=== PATIENT | female | born 1960 | race Caucasian/White ===

== ENCOUNTER → 2019-08-15 15:43 | Outpatient (BNVA) | payer MEDICARE, MEDICAID, SELFPAY | PROVIDERS: Family Provider Family Medicine; PCP Family Medicine; Visit Provider Specialist | DX: G43.711 Chronic migraine without aura, intractable, with status migrainosus (principal); F17.210 Nicotine dependence, cigarettes, uncomplicated | CPT/HCPCS: 99214 ==

== ENCOUNTER → 2019-09-15 08:21 | Outpatient (BNVA) | payer MEDICARE, MEDICAID, SELFPAY | PROVIDERS: Family Provider Family Medicine; PCP Family Medicine; Visit Provider Nurse Practitioner Psychiatric/Mental Health | DX: F33.2 Major depressive disorder, recurrent severe without psychotic features (principal); F43.12 Post-traumatic stress disorder, chronic; F41.1 Generalized anxiety disorder; F10.21 Alcohol dependence, in remission; F12.20 Cannabis dependence, uncomplicated; F15.21 Other stimulant dependence, in remission; F17.210 Nicotine dependence, cigarettes, uncomplicated | CPT/HCPCS: 99214 ==

== ENCOUNTER 2019-11-03 11:03 | Outpatient (CLI) | payer MEDICARE, MEDICAID, SELFPAY ==
--- NOTE | 2019-11-03 11:00 | MR_ITS ---
WS: [id number] MRI BRAIN WITHOUT CONTRAST HISTORY: previous abnormal MRI COMPARISON: 03/23/2018 and 10/27/2017 TECHNIQUE: Diffusion imaging, multiplanar T1, T2 and FLAIR imaging obtained. No evidence for acute infarct or hemorrhage. Robles-white matter differentiation is normal. There are extensive T2 and FLAIR signal abnormalities throughout the brain in a pericallosal and a sommers bcortical white matter distribution. White matter lesions perpendicular to the corpus callosum are st able. Size and number of the lesions appears stable. There is no obvious progression of the disease. There is extensive chronic ischemic change or demyelination bilaterally in the joss which is also sta ble. Ventricles and extra-axial spaces are normal. No inferior displacement of cerebellar tonsils. The sella turcica and pituitary gland are unremarkabl e. Visualized upper cervical region is normal. Dural venous sinuses and [place] of [place] demonstrate no abnormality on this unenhanced studies. Paranasal sinuses: Clear. Mastoid air cells: Normal. Calvarium and scalp: Intact. MR/MR head wo con* [id number] IMPRESSION: 1. Moderate to severe signal abnormalities within the brain. Due to the distri bution some of these signal changes are probably due to demyelination while oth ers are due to chronic microvascular ischemic disease. 2. No overall progression of disease since 03/23/2018. 3. Moderate bilateral joss ischemic changes are stable also. 4. No hemorrhage or acute infarct.
[2019-11-03 13:55] LABS: Erythrocyte Sedimentation Rate 15 mm/hr (0-15)
[2019-11-03 14:32] LABS: C Reactive Protein 2.5 mg/L (0.0-4.9)
== END 2019-11-03 11:04 | disposition home or self-care (01) ==
LOC: RADSHAW 11:10
PROVIDERS: Visit Provider Specialist
DX: R93.0 Abnormal findings on diagnostic imaging of skull and head, not elsewhere classified (principal)
CPT/HCPCS: 70551; 85651; 86140

== ENCOUNTER → 2019-12-25 07:28 | Outpatient (BNVA) | payer MEDICARE, MEDICAID, SELFPAY | PROVIDERS: Visit Provider Nurse Practitioner Psychiatric/Mental Health | DX: F33.2 Major depressive disorder, recurrent severe without psychotic features (principal); F43.12 Post-traumatic stress disorder, chronic; F41.1 Generalized anxiety disorder; F10.21 Alcohol dependence, in remission; F12.20 Cannabis dependence, uncomplicated; F15.21 Other stimulant dependence, in remission; F17.210 Nicotine dependence, cigarettes, uncomplicated | CPT/HCPCS: 99213 ==

== ENCOUNTER → 2020-06-18 08:09 | Outpatient (BNVA) | payer MEDICARE, MEDICAID, SELFPAY | PROVIDERS: Visit Provider Nurse Practitioner Psychiatric/Mental Health | DX: F33.2 Major depressive disorder, recurrent severe without psychotic features (principal); F43.12 Post-traumatic stress disorder, chronic; F41.1 Generalized anxiety disorder; F10.21 Alcohol dependence, in remission; F12.20 Cannabis dependence, uncomplicated; F15.21 Other stimulant dependence, in remission; F17.210 Nicotine dependence, cigarettes, uncomplicated; Z91.89 Other specified personal risk factors, not elsewhere classified | CPT/HCPCS: 99214 ==

== ENCOUNTER → 2020-09-19 08:03 | Outpatient (BNVA) | payer MEDICARE, MEDICAID, SELFPAY | PROVIDERS: PCP Family Medicine Adult Medicine; Visit Provider Nurse Practitioner Psychiatric/Mental Health | DX: F33.2 Major depressive disorder, recurrent severe without psychotic features (principal); F43.12 Post-traumatic stress disorder, chronic; F41.1 Generalized anxiety disorder; F10.21 Alcohol dependence, in remission; Z03.89 Encounter for observation for other suspected diseases and conditions ruled out; F12.20 Cannabis dependence, uncomplicated; F15.21 Other stimulant dependence, in remission; F17.210 Nicotine dependence, cigarettes, uncomplicated; Z91.89 Other specified personal risk factors, not elsewhere classified | CPT/HCPCS: 99214 ==

== ENCOUNTER → 2020-09-24 13:54 | Outpatient (BNVA) | payer MEDICARE, MEDICAID, SELFPAY | PROVIDERS: PCP Family Medicine Adult Medicine; Visit Provider Specialist | DX: G43.711 Chronic migraine without aura, intractable, with status migrainosus (principal); F17.210 Nicotine dependence, cigarettes, uncomplicated | CPT/HCPCS: 99214 ==

== ENCOUNTER → 2020-10-23 08:18 | Outpatient (BNVA) | payer MEDICARE, MEDICAID, SELFPAY | PROVIDERS: PCP Family Medicine Adult Medicine; Visit Provider Nurse Practitioner Psychiatric/Mental Health | DX: F33.2 Major depressive disorder, recurrent severe without psychotic features (principal); F43.12 Post-traumatic stress disorder, chronic; F41.1 Generalized anxiety disorder; F17.210 Nicotine dependence, cigarettes, uncomplicated; F10.21 Alcohol dependence, in remission; F12.20 Cannabis dependence, uncomplicated; F15.21 Other stimulant dependence, in remission; Z91.89 Other specified personal risk factors, not elsewhere classified | CPT/HCPCS: 99214 ==

== ENCOUNTER → 2020-11-27 07:36 | Outpatient (BNVA) | payer MEDICARE, MEDICAID, SELFPAY | PROVIDERS: PCP Family Medicine Adult Medicine; Visit Provider Nurse Practitioner Psychiatric/Mental Health | DX: F33.2 Major depressive disorder, recurrent severe without psychotic features (principal); F43.12 Post-traumatic stress disorder, chronic; F41.1 Generalized anxiety disorder; F17.210 Nicotine dependence, cigarettes, uncomplicated; F10.21 Alcohol dependence, in remission; F12.20 Cannabis dependence, uncomplicated; F15.21 Other stimulant dependence, in remission; Z91.89 Other specified personal risk factors, not elsewhere classified | CPT/HCPCS: 99214 ==

== ENCOUNTER → 2020-11-29 16:17 | Outpatient (BNVA) | payer MEDICARE, MEDICAID, SELFPAY | PROVIDERS: PCP Family Medicine Adult Medicine; Visit Provider Emergency Medicine | DX: Z20.828 Contact with and (suspected) exposure to other viral communicable diseases (principal) | CPT/HCPCS: 87635 ==

== ENCOUNTER → 2021-02-19 07:30 | Outpatient (BNVA) | payer MEDICARE, MEDICAID, SELFPAY | PROVIDERS: PCP Family Medicine Adult Medicine; Visit Provider Nurse Practitioner Psychiatric/Mental Health | DX: F33.2 Major depressive disorder, recurrent severe without psychotic features (principal); F43.12 Post-traumatic stress disorder, chronic; F41.1 Generalized anxiety disorder; F17.210 Nicotine dependence, cigarettes, uncomplicated; F10.21 Alcohol dependence, in remission; F12.20 Cannabis dependence, uncomplicated; F15.21 Other stimulant dependence, in remission; Z91.89 Other specified personal risk factors, not elsewhere classified | CPT/HCPCS: 99214 ==

== ENCOUNTER → 2021-03-19 08:13 | Outpatient (BNVA) | payer MEDICARE, MEDICAID, SELFPAY | PROVIDERS: PCP Family Medicine Adult Medicine; Visit Provider Nurse Practitioner Psychiatric/Mental Health | DX: F31.62 Bipolar disorder, current episode mixed, moderate (principal); F33.2 Major depressive disorder, recurrent severe without psychotic features; F41.0 Panic disorder [episodic paroxysmal anxiety]; F17.210 Nicotine dependence, cigarettes, uncomplicated; F41.1 Generalized anxiety disorder; F43.12 Post-traumatic stress disorder, chronic; F10.21 Alcohol dependence, in remission | CPT/HCPCS: 99214 ==

== ENCOUNTER → 2021-03-24 13:17 | Outpatient (BNVA) | payer MEDICARE, MEDICAID, SELFPAY | PROVIDERS: PCP Family Medicine Adult Medicine; Visit Provider Specialist | DX: G43.711 Chronic migraine without aura, intractable, with status migrainosus (principal); R20.3 Hyperesthesia; R39.15 Urgency of urination; F17.210 Nicotine dependence, cigarettes, uncomplicated | CPT/HCPCS: 99214 ==

== ENCOUNTER → 2021-05-13 07:34 | Outpatient (BNVA) | payer MEDICARE, MEDICAID, SELFPAY | PROVIDERS: PCP Family Medicine Adult Medicine; Visit Provider Nurse Practitioner Psychiatric/Mental Health | DX: F33.2 Major depressive disorder, recurrent severe without psychotic features (principal); F43.12 Post-traumatic stress disorder, chronic; F41.1 Generalized anxiety disorder; F17.210 Nicotine dependence, cigarettes, uncomplicated; F12.20 Cannabis dependence, uncomplicated | CPT/HCPCS: 99214 ==

== ENCOUNTER → 2021-06-17 07:41 | Outpatient (BNVA) | payer MEDICARE, MEDICAID, SELFPAY | PROVIDERS: PCP Family Medicine Adult Medicine; Visit Provider Nurse Practitioner Psychiatric/Mental Health | DX: F33.2 Major depressive disorder, recurrent severe without psychotic features (principal); F43.12 Post-traumatic stress disorder, chronic; F41.1 Generalized anxiety disorder; F17.210 Nicotine dependence, cigarettes, uncomplicated; F12.20 Cannabis dependence, uncomplicated | CPT/HCPCS: 99214 ==

== ENCOUNTER → 2021-08-07 15:33 | Outpatient (BNVA) | payer MEDICARE, MEDICAID, SELFPAY | PROVIDERS: PCP Family Medicine Adult Medicine; Visit Provider Obstetrics & Gynecology | DX: Z12.4 Encounter for screening for malignant neoplasm of cervix (principal); R39.15 Urgency of urination | CPT/HCPCS: 81000; 87086; 87624 ==

== ENCOUNTER → 2021-08-25 15:00 | Outpatient (BNVA) | payer MEDICARE, MEDICAID, SELFPAY | PROVIDERS: PCP Family Medicine Adult Medicine; Visit Provider Specialist | DX: G43.711 Chronic migraine without aura, intractable, with status migrainosus (principal); F17.210 Nicotine dependence, cigarettes, uncomplicated | CPT/HCPCS: 99213; 99214 ==

== ENCOUNTER → 2021-08-26 15:46 | Outpatient (BNVA) | payer MEDICARE, MEDICAID, SELFPAY | PROVIDERS: PCP Family Medicine Adult Medicine; Visit Provider Specialist | DX: G43.711 Chronic migraine without aura, intractable, with status migrainosus (principal); J44.9 Chronic obstructive pulmonary disease, unspecified; F41.1 Generalized anxiety disorder; F33.2 Major depressive disorder, recurrent severe without psychotic features; F17.210 Nicotine dependence, cigarettes, uncomplicated | CPT/HCPCS: 99214 ==

== ENCOUNTER → 2021-10-17 07:19 | Outpatient (BNVA) | payer MEDICARE, MEDICAID, SELFPAY | PROVIDERS: PCP Family Medicine Adult Medicine; Visit Provider Nurse Practitioner Psychiatric/Mental Health | DX: F33.2 Major depressive disorder, recurrent severe without psychotic features (principal); F43.12 Post-traumatic stress disorder, chronic; F41.1 Generalized anxiety disorder; F17.210 Nicotine dependence, cigarettes, uncomplicated; F12.20 Cannabis dependence, uncomplicated | CPT/HCPCS: 99214 ==

== ENCOUNTER → 2022-03-06 14:08 | Outpatient (BNVA) | payer MEDICARE, MEDICAID, SELFPAY | PROVIDERS: PCP Family Medicine Adult Medicine; Visit Provider Family Medicine Adult Medicine | DX: Z00.00 Encounter for general adult medical examination without abnormal findings (principal); F33.2 Major depressive disorder, recurrent severe without psychotic features; Z03.89 Encounter for observation for other suspected diseases and conditions ruled out; E55.9 Vitamin D deficiency, unspecified; N18.9 Chronic kidney disease, unspecified | CPT/HCPCS: 80053; 82306; 84443; 85025 ==

== ENCOUNTER 2022-03-24 09:01 | Day surgery (SDC) | payer MEDICARE, MEDICAID, SELFPAY ==
[2022-03-17 10:20] VITALS: BMI 21.3
--- NOTE | 2022-03-17 10:34 | ANES.PREANE2 ---
Pre-Anesthetic Assessment Height/Weight: Height 1.68 m Weight 59.874 kg Operation Date: 03/24/22 09:20 Proposed Procedures p Laparoscopic assisted vaginal hysterectomy, bilateral salpingo-oophorectomy 34298, anterior and posterior repair 75373, possible suburethral sling 82170,N81.4,N81.10(Not Applicable) - Ghada Merritt MD s Anterior Repair(Not Applicable) - Ghada Merritt MD s Posterior Repair(Not Applicable) - Ghada Merritt MD s Sling(Not Applicable) - Ghada Merritt MD Familial anesthetic complications: None Social Tobacco and No alcohol Exam alert, oriented x 3, clear to auscultation bilaterally and regular rate & rhythm Airway Mallampati: Class II Dentition: false Pulmonary Chronic Obstructive Pulmonary Disease (not on o2) CV/HEM Myocardial Infarction (thinks she small one 10 years ago) SOB with activity, but no chest pains Musc/skel sponydylolisthesis Neuropsych Transient Ischemic Attack (last one couple months, not on any anticoagulation. Sees dr. bowser, but mostly for migraines) Anesthetic Plan ASA status: 3 Anesthesia: General Risk of > 500 ml blood loss (7ml/kg in children): No Medications/Allergies Home Medications Medication Instructions Recorded Confirmed Last Taken Type multivitamin 1 tab PO DAILY 11/01/20 03/17/22 Unknown History baclofen 20 mg tablet See Rx Instructions .Route 06/02/21 03/17/22 Unknown Rx .COMPLEX #90 tabs biotin 10,000 mcg capsule 10,000 mcg PO DAILY 08/26/21 03/17/22 Unknown History galcanezumab-gnlm 120 mg/mL See Rx Instructions .Route 08/26/21 03/17/22 Unknown Rx subcutaneous pen injector .COMPLEX ##1 (Emgality Pen) ibuprofen 800 mg tablet See Rx Instructions .Route 09/01/21 03/17/22 Unknown Rx .COMPLEX #90 tabs pregabalin 100 mg capsule 100 mg PO DAILY 90 days #90 caps 09/02/21 03/17/22 Unknown Rx aspirin 81 mg tablet,delayed See Rx Instructions .Route 09/30/21 03/17/22 Unknown Rx release .COMPLEX #30 tabs albuterol sulfate 90 mcg/actuation See Rx Instructions .Route 11/28/21 03/17/22 Unknown Rx aerosol inhaler .COMPLEX #8.5 grams varenicline 1 mg tablet 1 mg PO BID #168 tabs 01/27/22 03/17/22 Unknown Rx duloxetine 30 mg capsule,delayed 30 mg PO .morning #30 caps 01/29/22 03/17/22 Unknown Rx release (Cymbalta) fluticasone fur. 200 mcg-umeclid See Rx Instructions .Route 02/18/22 03/17/22 Unknown Rx 62.5 mcg-vilant 25 mcg .COMPLEX #60 ea inhalat.powder (Trelegy Ellipta) Allergies Allergy/AdvReac Type Severity Reaction Status Date / Time No Known Allergies Allergy Verified 03/17/22 10:15 [facility] Anesthesia Medical History (Updated 03/16/22 @ 09:27 by Claudy Kumar MD) Alcohol use disorder, moderate, in sustained remission last use Apr 2020 on New Years yessi Cannabis dependence with current use Carpal tunnel syndrome, right upper limb Chronic post-traumatic stress disorder Cigarette nicotine dependence [employer] 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 disease COPD (chronic obstructive pulmonary disease) Depression Generalized anxiety disorder Intractable chronic migraine without aura and with status migrainosus Lack of access to transportation Major depressive disorder, recurrent severe without psychotic features Needs flu shot Osteoporosis Other stimulant dependence, in remission last use of methamphetamines in July 2017 Post-herpetic polyneuropathy Psychiatric care Vitamin D deficiency due to chronic kidney disease Well adult health check Surgical History History of surgery on arm S/P cataract extraction S/P laminectomy Family History Mother CAD (coronary artery disease) Asthma Sister CAD (coronary artery disease) Asthma Thyroid disease Brother CAD (coronary artery disease) Thyroid disease Father CAD (coronary artery disease) Thyroid disease Graves disease Grandfather CAD (coronary artery disease) Other Arthritis Diabetes Hypertension Stroke Denies family history of Cancer Social History (Updated 03/06/22 @ 13:03 by Olivia George LPN) Smoking and tobacco status: current every day smoker (pack a day) cigarettes Number of cigarettes per day: 1-5 Alcohol intake: former Substance/Drug Use: never Marital status: / Highest education level completed: Decline to Answer Current occupational status: disabled History of recent travel: No Data Anesthesia Cardiac Studies: No Data to Display
[2022-03-24] VITALS (16 sets, daily range): BP systolic 123–182; BP diastolic 69–107; PULSE 80–111; RESP 14–22; TEMP 36.1–36.7; O2SAT 83–99
[2022-03-24 08:57] LABS: Basophils % 0.5 %; Eosinophils # 0.2 10^3/uL (0.0-0.8); Hematocrit 43.4 % (37.0-47.0); Hemoglobin 14.7 g/dL (11.5-15.3); Lymphocytes # 1.8 10^3/uL (0.8-4.8); Lymphocytes % 32.1 %; Mean Corpuscular HGB Conc 33.9 g/dL (30.0-36.0); Mean Corpuscular Hemoglobin 30.4 pg (28.0-34.0); Mean Corpuscular Volume 89.9 fl (81-99); Mean Platelet Volume 9.9 fL (7.4-10.4); Monocytes # 0.4 10^3/uL (0.2-0.9); Monocytes % 7.6 %; Neutrophils # 3.06 10^3/uL (1.8-7.7); Neutrophils % 55.6 %; Nucleated Red Blood Cells % 0 %; Platelet Count 203 10^3/cmm (130-400); Red Blood Count 4.83 10^6/uL (4.1-5.3); Red Cell Distribution Width 11.9 % (12.1-15.1); White Blood Count 5.5 10^3/uL (4.0-10.0)
[2022-03-24] MEDS: sodium chloride 0.9% 1,000 ML 30 ML IV (09:09)
[2022-03-24] MEDS: phenazopyridine 100 mg Tablet 200 MG PO (09:09)
[2022-03-24] MEDS: acetaminophen 1,000 MG/100 ML PIGGYBACK 400 MG IV (09:09)
[2022-03-24] MEDS: CELEcoxib 200 mg Capsule 400 MG PO (09:10)
[2022-03-24] MEDS: scopolamine 1.5 Patch 1 PATCH TRANSDERMA (09:10)
[2022-03-24] MEDS: gabapentin 300 mg Capsule PO (09:10)
[2022-03-24 09:13] LABS: Anion Gap 15.6 (5-19); Blood Urea Nitrogen 14 mg/dL (8-23); Calcium 9.8 mg/dL (8.5-10.5); Carbon Dioxide 27 mmol/L (22-29); Chloride 96 mmol/L (98-107); Glomerular Filtration Rate 63.2 mL/min (90-130); Glucose 98 mg/dL (65-115); Osmolality Calculated 280 mOsm/kg (285-295); Potassium 3.6 mmol/L (3.5-5.1); Sodium 135 mmol/L (136-145)
--- NOTE | 2022-03-24 09:27 | W.PM.OPSUD ---
Surgery/Procedure H&P Update DATE OF PROCEDURE: March 24, 2022 DATE H&P PERFORMED: 03/19/22 H&P UPDATE INFORMATION: I have reviewed H&P completed within last 30 days, I have examined patient prior to procedure and No changes to prior documentation PREOP DIAGNOSIS: uterine prolapse, cystocele PLANNED PROCEDURE: Operation Date: 03/24/22 09:20 Proposed Procedures p Laparoscopic assisted vaginal hysterectomy, bilateral salpingo-oophorectomy 02713, anterior and posterior repair 99774, possible suburethral sling 23822,N81.4,N81.10(Not Applicable) - Ghada Merritt MD s Anterior Repair(Not Applicable) - Ghada Merritt MD s Posterior Repair(Not Applicable) - Ghada Merritt MD s Sling(Not Applicable) - Ghada Merritt MD Related Problem List Diagnoses (1) Cystocele: (2) Uterine prolapse:
[2022-03-24] MEDS: ceFAZolin 2,000 MG in sodium chloride 0.9% (plus) 50 ML 100 MG IV (09:54)
[2022-03-24] MEDS: miSOPROStol 200 mcg Tablet 800 MCG VAGINAL (10:35)
--- NOTE | 2022-03-24 12:24 | P.OP_ITS ---
Operative Report Date of procedure: March 24, 2022 Pre-op diagnosis: Preop Diagnosis uterine prolapse, cystocele Post-op diagnosis: Surgery aborted due to an emergency with another patient. Surgeon: Ghada Merritt Estimated blood loss (mL): 0 Brief History: The patient was taken to surgery. Anesthesia was induced. An emergency occurred. She was awakened and taken to recovery. Procedure: The patient was taken for general anesthesia was administered and found to be adequate. She was prepped and draped in the normal sterile fashion in the dorsal lithotomy position in [facility]. A Valiente catheter was placed and culture obtained. A weighted speculum was placed into the vagina and the anterior lip of the cervix grasped with a single-tooth tenaculum. She had cervical stenosis so 4 Cytotec were placed vaginally. At this point I was called to another room for a medical emergency. All of the instruments were removed and the patient was awakened and taken to recovery room.
--- NOTE | 2022-03-24 13:01 | PM.DCS ---
Discharge Providers Date of Admission: 03/24/22 Date of Discharge: March 24, 2022 Attending Provider at Discharge: Ghada Merritt MD Primary Care Provider: Claudy Kumar MD Diagnoses at Discharge Discharge Diagnosis (1) Cystocele: Status: Acute (2) Uterine prolapse: Status: Acute Reason for Visit Reason for Visit: uterovaginal prolapse, unspecified Hospital Course Hospital Course The patient was admitted for surgery. I was just getting started, when I was called out of the room for an emergency surgery. The case was aborted. The catheter was removed as well as the instruments that I had placed. She was awakened and taken to the recovery room. She was stable for discharge. Her case will be rescheduled. Physical Exam Urinary Catheter Management: Valiente Latex: Cath Placed During This Visit: yes, but has since been removed by the nurse Urinary Catheter Date of Insertion: 03/24/22 Urinary Catheter Time of Insertion: 10: Date Urinary Catheter Removed: 03/24/22 Time Urinary Catheter Discontinued: 11:02 Discharge Data Studies Completed and Pending Pending at discharge Category Date Time Status Urine Culture Routine Lab 03/24/22 10:26 Received Laboratory Results WBC 5.5 10^3/uL (4.0-10.0) 03/24/22 08:45 RBC 4.83 10^6/uL (4.1-5.3) 03/24/22 08:45 Hgb 14.7 g/dL (11.5-15.3) 03/24/22 08:45 Hct 43.4 % (37.0-47.0) 03/24/22 08:45 MCV 89.9 fl (81-99) 03/24/22 08:45 MCH 30.4 pg (28.0-34.0) 03/24/22 08:45 MCHC 33.9 g/dL (30.0-36.0) 03/24/22 08:45 RDW 11.9 % (12.1-15.1) L 03/24/22 08:45 Plt Count 203 10^3/cmm (130-400) 03/24/22 08:45 MPV 9.9 fL (7.4-10.4) 03/24/22 08:45 Neut % (Auto) 55.6 % 03/24/22 08:45 Lymph % (Auto) 32.1 % 03/24/22 08:45 Archer % (Auto) 7.6 % 03/24/22 08:45 Eos % (Auto) 4.0 % 03/24/22 08:45 Baso % (Auto) 0.5 % 03/24/22 08:45 Neut # (Auto) 3.06 10^3/uL (1.8-7.7) 03/24/22 08:45 Lymph # (Auto) 1.8 10^3/uL (0.8-4.8) 03/24/22 08:45 Archer # (Auto) 0.4 10^3/uL (0.2-0.9) 03/24/22 08:45 Eos # (Auto) 0.2 10^3/uL (0.0-0.8) 03/24/22 08:45 Baso # (Auto) 0.0 10^3/uL (0.0-0.1) 03/24/22 08:45 Nucleated RBC % (auto) 0 % 03/24/22 08:45 Nucleated RBCs # 0.0 /100WBC 03/24/22 08:45 Sodium 135 mmol/L (136-145) L 03/24/22 08:45 Potassium 3.6 mmol/L (3.5-5.1) 03/24/22 08:45 Chloride 96 mmol/L (98-107) L 03/24/22 08:45 Carbon Dioxide 27 mmol/L (22-29) 03/24/22 08:45 Anion Gap 15.6 (5-19) 03/24/22 08:45 BUN 14 mg/dL (8-23) 03/24/22 08:45 Creatinine 0.9 mg/dL (0.5-0.9) 03/24/22 08:45 GFR Calculation 63.2 mL/min (90-130) L 03/24/22 08:45 Glucose 98 mg/dL (65-115) 03/24/22 08:45 Calculated Osmolality 280 mOsm/kg (285-295) L 03/24/22 08:45 Calcium 9.8 mg/dL (8.5-10.5) 03/24/22 08:45 Blood Type O Positive 03/24/22 08:45 Rho(D) Type Positive 03/24/22 08:45 Antibody Screen Negative 03/24/22 08:45 Vitals Last Vital Signs Temp 98.0 F 03/24/22 12:05 Pulse 88 03/24/22 12:20 Resp 14 03/24/22 12:20 BP 163/107 03/24/22 12:20 Pulse Ox 94 03/24/22 12:30 O2 Del Method 03/24/22 12:30 O2 Flow Rate 2 03/24/22 12:30 Discharge Plan Discharge Patient Disposition: Home Condition: Stable Prescriptions: Continued multivitamin Tablet 1 tab PO DAILY biotin 10,000 mcg capsule 10,000 mcg PO DAILY Emgality Pen 120 mg/mL pen injector See Rx Instructions .ROUTE .COMPLEX Qty: 1 5RF Dose Instruction: INJECT 1 ML(120MG) SUBCUTANEOUSLY EVERY 30 DAYS Rx Instructions: INJECT 1 ML(120MG) SUBCUTANEOUSLY EVERY 30 DAYS varenicline 1 mg tablet 1 mg PO BID duloxetine [Cymbalta] 30 mg capsule,delayed release(DR/EC) 30 mg PO .morning Qty: 30 3RF Rx Instructions: Take one capsule every morning ibuprofen 800 mg tablet See Rx Instructions .ROUTE .COMPLEX Qty: 90 10RF Dose Instruction: TAKE 1 TABLET BY MOUTH THREE TIMES DAILY Rx Instructions: TAKE 1 TABLET BY MOUTH THREE TIMES DAILY pregabalin 100 mg capsule 100 mg PO DAILY 90 Days Qty: 90 3RF albuterol sulfate 90 mcg/actuation HFA aerosol inhaler See Rx Instructions .ROUTE .COMPLEX Qty: 8.5 10RF Dose Instruction: INHALE 2 PUFFS INTO THE LUNGS EVERY 6 HOURS NEEDED FOR SHORTNESS OF BREATH OR WHEEZING Rx Instructions: INHALE 2 PUFFS INTO THE LUNGS EVERY 6 HOURS NEEDED FOR SHORTNESS OF BREATH OR WHEEZING Trelegy Ellipta 200-62.5-25 mcg blister with device 1 inh inhalation DAILY 90 Days Qty: 180 1RF aspirin 81 mg tablet,delayed release (DR/EC) 81 mg PO DAILY Rx Instructions: TAKE 1 TABLET BY MOUTH ONCE DAILY baclofen 20 mg tablet 20 mg PO TID Rx Instructions: TAKE 1 TABLET BY MOUTH THREE TIMES DAILY NEEDED FOR CHRONIC BACK PAIN Discharge Orders: Discharge Order (Routine); Ordered 03/24/22 Ordered By: Ghada Merritt Discharge Attestations Time Spent in Discharge Care*: less than 30 min Quality Metrics Clinical Quality Measures [ No reported AMI, CVA or VTE this stay] Coding Level of Care Code Acute Chg FW DC note Diagnoses Cystocele Uterine prolapse N81.4
--- NOTE | 2022-03-24 17:09 | P.ANESUD_ITS ---
Pre-Anesthetic Update Pre-Anesthetic Assessment: Date of Surgery/Procedure: 03/24/22 Preop Yesenia gnosis: uterine prolapse, cystocele Proposed Procedure: Operation Date: 03/24/22 09:20 Proposed Procedures p Laparoscopic assisted vaginal hysterectomy, bilateral salpingo-oophorectomy 49979, anterior and posterior repair 96053, possible suburethral sling 30780,N81.4,N81.10(Not Applicable) - Ghada Merritt MD s Anterior Repair(Not Applicable) - Ghada Merritt MD s Posterior Repair(Not Applicable) - Ghada Merritt MD s Sling(Not Applicable) - Ghada Merritt MD Any changes to Pre-Anesthetic Assessment?: No Last Intake: Intake Last Liquid Date 03/23/22 Last Liquid Time 00:00 Last Solid Date 03/23/22 Last Solid Time 15:00 Labs Last 48hrs: Short CBC 03/24/22 Range/Units 08:45 WBC 5.5 (4.0-10.0) 10^3/ uL Hgb 14.7 (11.5-15.3) g/dL Hct 43.4 (37.0-47.0) % MCV 89.9 (81-99) fl Plt Count 203 (130-400) 10^3/c mm Neut % (Auto) 55.6 % Neut # (Auto) 3.06 (1.8-7.7) 10^3/u L BMP 03/24/22 08:45 Sodium 135 L Potassium 3.6 Chloride 96 L Carbon Dioxide 27 BUN 14 Creatinine 0.9 Glucose 98 Calcium 9.8 Blood Bank 03/24/22 08:45 Blood Type O Positive Rho(D) Type Positive Antibody Screen Negative Vitals: Temperature 98.0 F 03/24/22 12:05 Temperature Source Temporal Artery S can 03/24/22 11:15 Pulse Rate 88 03/24/22 12:20 Respiratory Rate 14 03/24/22 12:20 Blood Pressure 163/107 03/24/22 12:20 Blood Pressure Debo n 125 03/24/22 12:20 Pulse Oximetry 94 03/24/22 12:30 Oxygen Delivery Me thod 03/24/22 12:30 Oxygen Flow Rate 2 03/24/22 12:30 Exam: Pre-Anes Outpt Exam: alert, oriented x 3, clear to auscultation bilaterally and regular rate & rhythm Cardiac Studies: No Data to Display
--- NOTE | 2022-03-24 17:09 | ANE.PACU2 ---
Inpatient post-anesthesia follow up: Airway intact: Yes Vital signs: Temperature 98.0 F Pulse Rate 88 Respiratory Rate 14 Blood Pressure 163/107 Pulse Oximetry 94 Oxygen Delivery Me thod Nasal Cannula Oxygen Flow Rate 2 Fraction of Inspir ed Oxygen Hydration adequate: Yes Nausea and vomiting: No Pain level: 2 Mental status: Baseline Additional Comments: Patient was put to sleep and procedure started and then stopped b/c of emergency in another room and another patient.
== END 2022-03-24 13:50 | disposition home or self-care (01) ==
LOC: OR 09:03 → OBGYN 10:45 → OR 12:59
PROVIDERS: PCP Family Medicine Adult Medicine; Visit Provider Obstetrics & Gynecology
DX: N81.4 Uterovaginal prolapse, unspecified (principal); Z53.8 Procedure and treatment not carried out for other reasons; J44.9 Chronic obstructive pulmonary disease, unspecified; Z99.81 Dependence on supplemental oxygen; I25.2 Old myocardial infarction; Z86.73 Personal history of transient ischemic attack (TIA), and cerebral infarction without residual deficits; Z79.82 Long term (current) use of aspirin; F32.A Depression, unspecified; F41.9 Anxiety disorder, unspecified; M81.0 Age-related osteoporosis without current pathological fracture; N18.9 Chronic kidney disease, unspecified; F17.210 Nicotine dependence, cigarettes, uncomplicated
CPT/HCPCS: 36415; 80048; 85025; 86850; 86900; 87086; J0131; J0690; J1100; J2250; J2405; J2704; J3010; J3490; J7030

== ENCOUNTER → 2022-04-15 15:24 | Outpatient (BNVA) | payer MEDICARE, MEDICAID, SELFPAY | PROVIDERS: PCP Family Medicine Adult Medicine; Visit Provider Specialist | DX: G43.711 Chronic migraine without aura, intractable, with status migrainosus (principal); F17.210 Nicotine dependence, cigarettes, uncomplicated | CPT/HCPCS: 99213 ==

== ENCOUNTER 2022-04-22 09:41 | Observation (INO) | payer MEDICARE, MEDICAID, SELFPAY ==
[2022-04-21 15:05] VITALS: BMI 21.6
[2022-04-21 16:33] LABS: Basophils % 0.2 %; Eosinophils # 0.2 10^3/uL (0.0-0.8); Eosinophils % 3.1 %; Hematocrit 46.7 % (37.0-47.0); Hemoglobin 15.4 g/dL (11.5-15.3); Lymphocytes # 1.9 10^3/uL (0.8-4.8); Lymphocytes % 38.7 %; Mean Corpuscular Hemoglobin 29.6 pg (28.0-34.0); Mean Corpuscular Volume 89.6 fl (81-99); Mean Platelet Volume 10.3 fL (7.4-10.4); Monocytes # 0.4 10^3/uL (0.2-0.9); Monocytes % 8.1 %; Neutrophils # 2.44 10^3/uL (1.8-7.7); Neutrophils % 49.7 %; Nucleated Red Blood Cells % 0 %; Platelet Count 215 10^3/cmm (130-400); Red Blood Count 5.21 10^6/uL (4.1-5.3); Red Cell Distribution Width 11.7 % (12.1-15.1); White Blood Count 4.9 10^3/uL (4.0-10.0)
[2022-04-21 16:46] LABS: Anion Gap 14.5 (5-19); Blood Urea Nitrogen 9 mg/dL (8-23); Calcium 9.9 mg/dL (8.5-10.5); Carbon Dioxide 29 mmol/L (22-29); Chloride 101 mmol/L (98-107); Glomerular Filtration Rate 84.5 mL/min (90-130); Glucose 98 mg/dL (65-115); Osmolality Calculated 291 mOsm/kg (285-295); Potassium 3.5 mmol/L (3.5-5.1); Sodium 141 mmol/L (136-145)
[2022-04-22] VITALS (15 sets, daily range): BP systolic 118–167; BP diastolic 69–96; PULSE 64–98; RESP 14–20; TEMP 36.2–36.8; O2SAT 89–100; BMI 21.6
[2022-04-22] MEDS: acetaminophen 1,000 MG/100 ML PIGGYBACK 400 MG IV (06:34)
[2022-04-22] MEDS: sodium chloride 0.9% 1,000 ML 30 ML IV (06:35)
[2022-04-22] MEDS: CELEcoxib 200 mg Capsule 400 MG PO (06:35)
[2022-04-22] MEDS: gabapentin 300 mg Capsule PO (06:35)
[2022-04-22] MEDS: scopolamine 1.5 Patch 1 PATCH TRANSDERMA (06:35)
[2022-04-22] MEDS: phenazopyridine 100 mg Tablet 200 MG PO ×3 (06:36→20:50)
[2022-04-22] MEDS: ceFAZolin 2,000 MG in sodium chloride 0.9% (plus) 50 ML 100 MG IV ×3 (07:16→23:32)
--- NOTE | 2022-04-22 07:22 | ANES.PREANE2 ---
Pre-Anesthetic Assessment Height/Weight: Height 1.68 m Weight 60.781 kg Temp Pulse Resp BP Pulse Ox O2 Del Method 98.0 F 93 18 154/94 94 04/22/22 06:13 04/22/22 06:13 04/22/22 06:13 04/22/22 06:13 04/22/22 06:13 04/22/22 06:15 Preop Diagnosis: uterine prolapse, cystocele, urinary incontinence Operation Date: 04/22/22 07:00 Proposed Procedures p Laparoscopic assisted vaginal hysterectomy, bilateral salpingo-oophorectomy 07919, anterior and posterior repair 33658, possible suburethral sling 53783,N81.4,N81.10(Not Applicable) - Ghada Merritt MD s Anterior Repair(Not Applicable) - Ghada Merritt MD s Posterior Repair(Not Applicable) - Ghada Merritt MD s Sling Single Incision Midurethral Sling(Not Applicable) - Ghada Merritt MD Familial anesthetic complications: none Was Beta Franky taken within 24 hours: N/A Was Clonidine taken within 24 hours: N/A Last intake: Intake Last Liquid Date 04/22/22 Last Liquid Time 03:00 Last Solid Date 04/21/22 Last Solid Time 23:59 Social Tobacco and No alcohol Gabriela Exam alert, oriented x 3 and regular rate & rhythm Airway Submandibular: within normal limits Cervical ROM: within normal limits Mallampati: Class II Dentition: chipped Comments: Comments: poor dentition Pulmonary Chronic Obstructive Pulmonary Disease CV/HEM Coronary Artery Disease Neuropsych Anxiety and Depression Anesthetic Plan ASA status: 3 Anesthesia: General Medications/Allergies Home Medications Medication Instructions Recorded Confirmed Last Taken Type multivitamin 1 tab PO DAILY 11/01/20 04/22/22 04/21/22 History biotin 10,000 mcg capsule 10,000 mcg PO DAILY 08/26/21 04/22/22 04/21/22 History pregabalin 100 mg capsule 100 mg PO DAILY 90 days #90 caps 09/02/21 04/22/22 04/21/22 Rx duloxetine 30 mg capsule,delayed 30 mg PO .morning #30 caps 03/19/22 04/22/22 04/21/22 Rx release (Cymbalta) fluticasone fur. 200 mcg-umeclid 1 inh inhalation DAILY 90 days 03/23/22 04/22/22 04/22/22 Rx 62.5 mcg-vilant 25 mcg #180 ea inhalat.powder (Trelegy Ellipta) aspirin 81 mg tablet,delayed 81 mg PO DAILY 03/24/22 04/22/22 04/19/22 History release baclofen 20 mg tablet See Rx Instructions .Route 04/17/22 04/22/22 04/21/22 Rx .COMPLEX #90 tabs albuterol sulfate 90 mcg/actuation 2 inh inhalation DAILY 04/22/22 04/22/22 04/22/22 History aerosol inhaler galcanezumab-gnlm 120 mg/mL 120 mg SUBCUT DIRECTED 04/22/22 04/22/22 04/14/22 History subcutaneous pen injector (Emgality Pen) ibuprofen 800 mg tablet 800 mg PO DAILY 04/22/22 04/22/22 04/19/22 History sumatriptan succinate 100 mg 100 mg PO DAILY 04/22/22 04/22/22 Unknown History tablet (Imitrex) varenicline 1 mg tablet (Chantix) 1 mg PO BID 04/22/22 04/22/22 04/21/22 History Allergies Allergy/AdvReac Type Severity Reaction Status Date / Time No Known Allergies Allergy Verified 04/21/22 15:00 Current Medications Generic Name Dose Route Start Last Admin Trade Name Freq PRN Reason Stop Dose Admin Sodium Chloride 1,000 mls @ 30 mls/hr 04/22/22 06:15 04/22/22 06:35 Sodium Chloride 0.9% IV 04/23/22 06:14 30 mls/hr .Q24H GARRETT Administration [facility] Anesthesia Medical History Alcohol use disorder, moderate, in sustained remission last use Apr 2020 on New Years yessi Cannabis dependence with current use Carpal tunnel syndrome, right upper limb Chronic post-traumatic stress disorder Cigarette nicotine dependence [employer] 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 disease COPD (chronic obstructive pulmonary disease) Depression Generalized anxiety disorder Intractable chronic migraine without aura and with status migrainosus Lack of access to transportation Major depressive disorder, recurrent severe without psychotic features Needs flu shot Osteoporosis Other stimulant dependence, in remission last use of methamphetamines in July 2017 Post-herpetic polyneuropathy Psychiatric care Vitamin D deficiency due to chronic kidney disease Well adult health check Surgical History History of surgery on arm S/P cataract extraction S/P laminectomy Family History Mother CAD (coronary artery disease) Asthma Sister CAD (coronary artery disease) Asthma Thyroid disease Brother CAD (coronary artery disease) Thyroid disease Father CAD (coronary artery disease) Thyroid disease Graves disease Grandfather CAD (coronary artery disease) Other Arthritis Diabetes Hypertension Stroke Denies family history of Cancer Social History Smoking and tobacco status: current every day smoker cigarettes Alcohol intake: former Marital status: / Highest education level completed: Decline to Answer Current occupational status: disabled History of recent travel: No Data Anesthesia 04/21/22 15:15 04/21/22 15:15 Short CBC 04/21/22 Range/Units 15:15 WBC 4.9 (4.0-10.0) 10^3/uL Hgb 15.4 H (11.5-15.3) g/dL Hct 46.7 (37.0-47.0) % MCV 89.6 (81-99) fl Plt Count 215 (130-400) 10^3/cmm Neut % (Auto) 49.7 % Neut # (Auto) 2.44 (1.8-7.7) 10^3/uL BMP 04/21/22 15:15 Sodium 141 Potassium 3.5 Chloride 101 Carbon Dioxide 29 BUN 9 Creatinine 0.7 Glucose 98 Calcium 9.9 Blood Bank 04/21/22 15:15 Blood Type O Positive Rho(D) Type Positive Antibody Screen Negative Cardiac Studies: No Data to Display
--- NOTE | 2022-04-22 07:30 | W.PM.OPSUD ---
Surgery/Procedure H&P Update DATE OF PROCEDURE: April 22, 2022 DATE H&P PERFORMED: 04/22/22 H&P UPDATE INFORMATION: I have reviewed H&P completed within last 30 days, I have examined patient prior to procedure and No changes to prior documentation PREOP DIAGNOSIS: uterine prolapse, cystocele, urinary incontinence PLANNED PROCEDURE: Operation Date: 04/22/22 07:00 Proposed Procedures p Laparoscopic assisted vaginal hysterectomy, bilateral salpingo-oophorectomy 26831, anterior and posterior repair 62566, possible suburethral sling 99445,N81.4,N81.10(Not Applicable) - Ghada Merritt MD s Anterior Repair(Not Applicable) - Ghada Merritt MD s Posterior Repair(Not Applicable) - Ghada Merritt MD s Sling Single Incision Midurethral Sling(Not Applicable) - Ghada Merritt MD Related Problem List Diagnoses (1) Cystocele: (2) Uterine prolapse:
--- NOTE | 2022-04-22 07:31 | P.HP_ITS ---
Providers/Chief Complaint Primary Care Provider: Claudy Kumar MD Chief Complaint: N81.4, N81.10 History of Present Illness Araceli Braxton is a 61 year old female Review of Systems 2 General: Reports: 10 or more systems reviewed and unremarkable except in HPI and below Medications/Allergies Home Medications Medication Instructions Recorded Confirmed Last Taken Type multivitamin 1 tab PO DAILY 11/01/20 04/22/22 04/21/22 History biotin 10,000 mcg capsule 10,000 mcg PO DAILY 08/26/21 04/22/22 04/21/22 History pregabalin 100 mg capsule 100 mg PO DAILY 90 days #90 caps 09/02/21 04/22/22 04/21/22 Rx duloxetine 30 mg capsule,delayed 30 mg PO .morning #30 caps 03/19/22 04/22/22 1 06/21/21 Rx release (Cymbalta) fluticasone fur. 200 mcg-umeclid 1 inh inhalation DAILY 90 days 03/23/22 04/22/22 04/22/22 Rx 62.5 mcg-vilant 25 mcg #180 ea inhalat.powder (Trelegy Ellipta) aspirin 81 mg tablet,delayed 81 mg PO DAILY 03/24/22 04/22/22 04/19/22 History release baclofen 20 mg tablet See Rx Instructions .Route 04/17/22 04/22/22 04/21/22 Rx .COMPLEX #90 tabs albuterol sulfate 90 mcg/actuation 2 inh inhalation DAILY 04/22/22 04/22/22 04/22/22 History aerosol inhaler galcanezumab-gnlm 120 mg/mL 120 mg SUBCUT DIRECTED 04/22/22 04/22/22 04/14/22 History subcutaneous pen injector (Emgality Pen) ibuprofen 800 mg tablet 800 mg PO DAILY 04/22/22 04/22/22 04/19/22 History sumatriptan succinate 100 mg 100 mg PO DAILY 04/22/22 04/22/22 Unknown History tablet (Imitrex) varenicline 1 mg tablet (Chantix) 1 mg PO BID 04/22/22 04/22/22 04/21/22 History Allergies Allergy/AdvReac Type Severity Reaction Status Date / Time No Known Allergies Allergy Verified 04/21/22 15:00 PFSH Acute PFSH: Medical History Alcohol use disorder, moderate, in sustained remission last use Apr 2020 on Years yessi Cannabis dependence with current use Carpal tunnel syndrome, right upper limb Chronic post-traumatic stress disorder Cigarette nicotine dependence 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 COPD (chronic obstructive pulmonary disease) Depression Generalized anxiety disorder Intractable chronic migraine without aura and with status migrainosus Lack of access to transportation Major depressive disorder, recurrent severe without psychotic features Needs flu shot Osteoporosis Other stimulant dependence, in remission last use of methamphetamines in July 2017 Post-herpetic polyneuropathy Psychiatric care Vitamin D deficiency due to chronic kidney disease Well adult health check Surgical History History of surgery on arm S/P cataract extraction S/P laminectomy Family History Mother CAD (coronary artery disease) Asthma Sister CAD (coronary artery disease) Asthma Thyroid disease Brother CAD (coronary artery disease) Thyroid disease Father CAD (coronary artery disease) Thyroid disease Graves disease Grandfather CAD (coronary artery disease) Other Arthritis Diabetes Hypertension Stroke Denies family history of Cancer Social History Smoking and tobacco status: current every day smoker cigarettes Alcohol intake: former Marital status: / Highest education level completed: Decline to Answer Current occupational status: disabled History of recent travel: No Vitals/I&O/Wt Last Vital Signs Temp 98.0 F 04/22/22 06:13 Pulse 93 04/22/22 06:13 Resp 18 04/22/22 06:13 BP 154/94 04/22/22 06:13 Pulse Ox 94 04/22/22 06:13 O2 Del Method 04/22/22 06:15 04/21/22 04/22/22 04/22/22 22:59 06:59 14:59 Intake Total 100 / 100 Balance 100 / 100 Weight last 48 hrs Weight 134 lb Physical Exam 2 Narrative: The patient initially presented in July, with vaginal complaints.? She had been having pain for about a year.? At first, it was occasional, now it is constant.? It felt like she is sitting on a ball.? This makes it difficult and painful to urinate.? She was found to have grade 3 uterine prolapse, as well as grade 3 cystocele.? These findings are consistent with her symptoms.? She tried conservative management for about 6 months.? She decided that the symptoms were getting worse.? She wanted surgical treatment.? She has been scheduled for laparoscopic assisted vaginal hysterectomy, bilateral salpingoophorectomy, anterior/posterior repair and possible mid urethral sling on 03/24 Const: COMMON NORMALS: no acute distress, average body habitus, patient oriented x3, no limitations, healthy appearing, alert and well nourished GENERAL APPEARANCE: cooperative, comfortable, well kempt and well developed ORIENTATION/CONSCIOUSNESS: Yes awake, Yes oriented to person, Yes oriented to place and Yes oriented to time Resp: COMMON NORMALS: normal respiratory effort EFFORT & INSPECTION: Yes able to speak in complete sentences GI: COMMON NORMALS: Soft to palpation and non-tender : COMMON NORMALS: Yes normal external appearance, Yes normal appearance of the vagina, Yes normal appearance of the cervix, Yes normal bimanual exam, Yes No adnexal tenderness and Yes no masses Extremity: COMMON NORMALS: no calf tenderness Psych: COMMON NORMALS: mental status grossly normal, Normal thought process present, cooperative and normal affect Data 04/21/22 15:15 04/21/22 15:15 Attestations Medical Necessity Statement*: The patient will be admitted for outpatient surgery Coding Level of Care Code Acute Client Service Representative for Ludwin Gupta
[2022-04-22] MEDS: vasopressin 20 unit/mL INJ INJECTION (07:55)
[2022-04-22] MEDS: miSOPROStol 200 mcg Tablet 800 MCG VAGINAL (07:55)
--- NOTE | 2022-04-22 09:25 | PM.OP ---
Operative Report Date of procedure: April 22, 2022 Pre-op diagnosis: Preop Diagnosis uterine prolapse, cystocele, urinary incontinence Post-op diagnosis: same Post-op findings: moderate adhesions in the pelvis. Normal tubes and ovaries. small uterus Procedure done: LAVH, BSO Specimens removed/disposition: uterus, tubes and ovaries to pathology Surgeon: Ghada Merritt Anesthesia: General Estimated blood loss (mL): 1 IV fluids (mL): 800 Urine output (mL): 350 Complications: none Condition: stable Disposition: PACU Procedure: The patient was taken to the operating room where general anesthesia was administered and found to be adequate. She was prepped and draped in the normal sterile fashion in the dorsal lithotomy position in [facility]. A Valeinte catheter was placed. A weighted speculum was placed into the vagina and the anterior lip of the cervix was grasped with a single tooth tenaculum. The Zumi uterine manipulator was placed. The weighted speculum was removed. The gloves were changed and attention was turned to the abdomen. A 5 mm infraumbilical incision was made. Using a 5 mm port with the camera, the port was placed into the abdomen. The abdomen was insufflated. Two low, lateral 5 mm ports were placed on the left and right under direct visualization from the camera. The right tube was grasped and elevated. Using the laparoscopic cautery, the infundibulopelvic ligament was cauterized lateral to the fallopian tube and ovary, down the the cornua. This was performed the same way on the left. The uteroovarian ligaments as well as the round ligaments were ligated. Attention was then turned to the vaginal portion of the procedure. The weighted speculum was placed into the vagina. The zumi manipulator was removed. The single tooth tenaculum was removed and replaced with the gavin's tenaculum. 10 mL of dilute Pitressin was injected at the vesicovaginal junction. A circumferential incision was made at the vesicovaginal junction and the vaginal mucosa reflected cephalad. The posterior peritoneum was entered sharply with the Metzenbaum scissors and the long weighted speculum replaced. Using the Will clamps the uterosacral ligaments were clamped cut and suture-ligated. The anterior peritoneum was entered sharply with the metzenbaum scissors. Then sequentially the uterine arteries and cardinal ligaments were clamped cut and suture-ligated. A single-tooth tenaculum was used to deliver the uterus. The remaining segement of the utero-ovarian ligaments were clamped cut and suture-ligated bilaterally and the specimen was removed. There was good hemostasis with only mild bleeding from the cuff. The peritoneum was closed with a pursestring using 2-0 Vicryl. The vaginal cuff was closed with 0 Vicryl in a running locked pattern incorporating the uterosacral ligaments into the lateral aspects of the vaginal cuff. The Valiente catheter was removed and the cystoscope advanced into the bladder. The patient was given pyridium and bilateral spill was noted. There were no injuries or deficits noted in the bladder. The cystoscope was removed and the Valiente was replaced. Vaginal packing was placed for good hemostasis. The gloves and gowns were changed and attention was turned to the abdomen. The ports were closed with 2-0 monocryl with skin glue. The patient tolerated the procedure well. Sponge lap and needle counts were correct x3. She was taken to the recovery room in stable condition.
[2022-04-22] MEDS: HYDROcodone-acetaminophen 5-325 mg Tablet PO ×2 (10:30→18:30)
[2022-04-22] MEDS: duloxetine 30 mg Capsule PO (10:31)
[2022-04-22] MEDS: ketorolac 30 mg/mL INJ IVP ×3 (10:31→20:51)
[2022-04-22] MEDS: dextrose 5%-lactated ringers 1,000 ML 125 ML IV ×2 (10:33→18:31)
[2022-04-22 11:57] LABS: Glucose Point of Care 146 mg/dL (70-110)
--- NOTE | 2022-04-22 13:06 | ANE.PACU2 ---
Inpatient post-anesthesia follow up: Airway intact: Yes Vital signs: Temperature 97.5 F Pulse Rate 90 Respiratory Rate 18 Blood Pressure 167/89 Pulse Oximetry 98 Oxygen Delivery Me thod Room Air Oxygen Flow Rate 6 Fraction of Inspir ed Oxygen Hydration adequate: Yes Nausea and vomiting: No Pain level: 3 Mental status: Baseline
[2022-04-22] MEDS: docusate sodium 100 mg Capsule PO (18:29)
[2022-04-23] VITALS: BP 112/66; PULSE 78; RESP 14; TEMP 36.7; O2SAT 92
[2022-04-23] MEDS: ketorolac 30 mg/mL INJ IVP (03:07)
[2022-04-23] MEDS: dextrose 5%-lactated ringers 1,000 ML 125 ML IV (03:07)
[2022-04-23 04:00] VITALS: BP 108/63; PULSE 77; RESP 14; TEMP 36.7; O2SAT 88
[2022-04-23 05:49] LABS: Hemoglobin 11.5 g/dL (11.5-15.3); Mean Corpuscular HGB Conc 32.9 g/dL (30.0-36.0); Mean Corpuscular Hemoglobin 29.8 pg (28.0-34.0); Mean Corpuscular Volume 90.7 fl (81-99); Mean Platelet Volume 9.9 fL (7.4-10.4); Platelet Count 148 10^3/cmm (130-400); Red Blood Count 3.86 10^6/uL (4.1-5.3); Red Cell Distribution Width 11.9 % (12.1-15.1); White Blood Count 8.1 10^3/uL (4.0-10.0)
[2022-04-23 08:06] VITALS: BP 101/60; PULSE 79; RESP 16; TEMP 36.5; O2SAT 90
[2022-04-23] MEDS: ibuprofen 800 mg tablet PO (08:52)
[2022-04-23] MEDS: docusate sodium 100 mg Capsule PO (08:52)
[2022-04-23] MEDS: phenazopyridine 100 mg Tablet 200 MG PO (08:52)
[2022-04-23] MEDS: pregabalin 100 mg Capsule PO (08:52)
[2022-04-23] MEDS: duloxetine 30 mg Capsule PO (08:52)
[2022-04-23] MEDS: HYDROcodone-acetaminophen 5-325 mg Tablet PO (08:53)
--- NOTE | 2022-04-23 10:51 | P.DS_ITS ---
Discharge Providers Date of Admission: 04/22/22 09:41 Date of Discharge: April 23, 2022 Attending Provider at Admission: Ghada Merritt MD Attending Provider at Discharge: Ghada Merritt MD Primary Care Provider: Claudy Kumar MD Diagnoses at Discharge Discharge Diagnosis (1) Cystocele: Status: Acute (2) Uterine prolapse: Status: Acute Reason for Visit Reason for Visit: N81.4, N81.10 Hospital Course Hospital Course The patient was admitted for surgery. she did well postoperatively and was ready for discharge on day #1 Physical Exam Narrative: The patient is doing well. She is ambulating, tolerating a regular diet and pain is well controlled. Catheter and packing have been removed. Const: COMMON NORMALS: no acute distress, average body habitus, patient oriented x3, no limitations, healthy appearing, alert and well nourished GENERAL APPEARANCE: cooperative, comfortable, well kempt and well developed ORIENTATION/CONSCIOUSNESS: Yes awake, Yes oriented to person, Yes oriented to place and Yes oriented to time Resp: COMMON NORMALS: normal respiratory effort EFFORT & INSPECTION: Yes able to speak in complete sentences GI: COMMON NORMALS: Soft to palpation and non-tender PALPATION: Yes Soft to palpation Extremity: COMMON NORMALS: no calf tenderness Neuro: COMMON NORMALS: patient oriented x3 SENSORIUM/ORIENTATION: Yes alert, Yes oriented to person, Yes oriented to place and Yes oriented to time Psych: APPEARANCE: Yes well kempt Urinary Catheter Management: Valiente: Cath Placed During This Visit: yes Reason for Continuing Indwelling Catheter: Perioperative Use in Selected Surgeries Urinary Catheter Date of Insertion: 04/22/22 Urinary Catheter Time of Insertion: 07:45 Discharge Data Studies Completed and Pending Pending at discharge Category Date Time Status Urine Culture Routine Lab 04/22/22 07:51 Received Pathology: Surgical [PTH] Routine Pth 04/22/22 09:02 Received Laboratory Results WBC 8.1 10^3/uL (4.0-10.0) 04/23/22 05:44 RBC 3.86 10^6/uL (4.1-5.3) L 04/23/22 05:44 Hgb 11.5 g/dL (11.5-15.3) 04/23/22 05:44 Hct 35.0 % (37.0-47.0) L 04/23/22 05:44 MCV 90.7 fl (81-99) 04/23/22 05:44 MCH 29.8 pg (28.0-34.0) 04/23/22 05:44 MCHC 32.9 g/dL (30.0-36.0) 04/23/22 05:44 RDW 11.9 % (12.1-15.1) L 04/23/22 05:44 Plt Count 148 10^3/cmm (130-400) 04/23/22 05:44 MPV 9.9 fL (7.4-10.4) 04/23/22 05:44 Neut % (Auto) 49.7 % 04/21/22 15:15 Lymph % (Auto) 38.7 % 04/21/22 15:15 [place] % (Auto) 8.1 % 04/21/22 15:15 Eos % (Auto) 3.1 % 04/21/22 15:15 Baso % (Auto) 0.2 % 04/21/22 15:15 Neut # (Auto) 2.44 10^3/uL (1.8-7.7) 04/21/22 15:15 Lymph # (Auto) 1.9 10^3/uL (0.8-4.8) 04/21/22 15:15 [place] # (Auto) 0.4 10^3/uL (0.2-0.9) 04/21/22 15:15 Eos # (Auto) 0.2 10^3/uL (0.0-0.8) 04/21/22 15:15 Baso # (Auto) 0.0 10^3/uL (0.0-0.1) 04/21/22 15:15 Nucleated RBC % (auto) 0 % 04/21/22 15:15 Nucleated RBCs # 0.0 /100WBC 04/21/22 15:15 Sodium 141 mmol/L (136-145) 04/21/22 15:15 Potassium 3.5 mmol/L (3.5-5.1) 04/21/22 15:15 Chloride 101 mmol/L (98-107) 04/21/22 15:15 Carbon Dioxide 29 mmol/L (22-29) 04/21/22 15:15 Anion Gap 14.5 (5-19) 04/21/22 15:15 BUN 9 mg/dL (8-23) 04/21/22 15:15 Creatinine 0.7 mg/dL (0.5-0.9) 04/21/22 15:15 GFR Calculation 84.5 mL/min (90-130) L 04/21/22 15:15 Glucose 98 mg/dL (65-115) 04/21/22 15:15 POC Glucose 146 mg/dL (70-110) H 04/22/22 11:45 Calculated Osmolality 291 mOsm/kg (285-295) 04/21/22 15:15 Calcium 9.9 mg/dL (8.5-10.5) 04/21/22 15:15 Blood Type O Positive 04/21/22 15:15 Rho(D) Type Positive 04/21/22 15:15 Antibody Screen Negative 04/21/22 15:15 Vitals Last Vital Signs Temp 97.7 F 04/23/22 08:06 Pulse 79 04/23/22 08:06 Resp 16 04/23/22 08:06 BP 101/60 04/23/22 08:06 Pulse Ox 90 04/23/22 08:06 O2 Del Method 04/23/22 08:06 O2 Flow Rate 6 04/22/22 09:30 Discharge Plan Discharge Patient Disposition: Home Condition: Stable Prescriptions: New ibuprofen 800 mg Tablet 800 mg PO Q8H Qty: 30 0RF hydrocodone-acetaminophen 5-325 mg Tablet 1 tab PO Q4H PRN (Reason: Moderate To Severe Pain) Qty: 30 0RF docusate sodium 100 mg Capsule 100 mg PO BID Qty: 60 0RF Continued multivitamin Tablet 1 tab PO DAILY biotin 10,000 mcg capsule 10,000 mcg PO DAILY duloxetine [Cymbalta] 30 mg capsule,delayed release(DR/EC) 30 mg PO .morning Qty: 30 3RF Rx Instructions: Take one capsule every morning pregabalin 100 mg capsule 100 mg PO DAILY 90 Days Qty: 90 3RF Trelegy Ellipta 200-62.5-25 mcg blister with device 1 inh inhalation DAILY 90 Days Qty: 180 1RF baclofen 20 mg tablet See Rx Instructions .ROUTE .COMPLEX Qty: 90 5RF Dose Instruction: TAKE 1 TABLET BY MOUTH THREE TIMES DAILY NEEDED FOR CHRONIC BACK PAIN Rx Instructions: TAKE 1 TABLET BY MOUTH THREE TIMES DAILY NEEDED FOR CHRONIC BACK PAIN aspirin 81 mg tablet,delayed release (DR/EC) 81 mg PO DAILY Rx Instructions: TAKE 1 TABLET BY MOUTH ONCE DAILY ibuprofen 800 mg tablet 800 mg PO DAILY Rx Instructions: TAKE 1 TABLET BY MOUTH THREE TIMES DAILY Imitrex 100 mg tablet 100 mg PO DAILY Rx Instructions: take 1 tab at onset of headache; if no relief, may repeat 1 tab after at least 2 hrs; max = 2 tabs/24 hrs PO albuterol sulfate 90 mcg/actuation HFA aerosol inhaler 2 inh inhalation DAILY Rx Instructions: INHALE 2 PUFFS INTO THE LUNGS EVERY 6 HOURS NEEDED FOR SHORTNESS OF BREATH OR WHEEZING Chantix 1 mg tablet 1 mg PO BID Emgality Pen 120 mg/mL pen injector 120 mg SUBCUT DIRECTED Rx Instructions: INJECT 1 ML(120MG) SUBCUTANEOUSLY EVERY 30 DAYS Discharge Orders: Discharge Order (Routine); Ordered 04/23/22 Ordered By: Ghada Merritt Patient Instructions: Opioid Safety Discharge Attestations Time Spent in Discharge Care*: less than 30 min Quality Metrics Clinical Quality Measures [ No reported AMI, CVA or VTE this stay] Coding Level of Care Code Acute Chg FW DC note Diagnoses Cystocele Uterine prolapse N81.4
[2022-04-23 10:59] VITALS: BP 109/70; PULSE 93; RESP 16; TEMP 36.6; O2SAT 90
[2022-04-23 12:50] VITALS: BP 109/70; PULSE 93; RESP 16; TEMP 36.6; O2SAT 90
--- NOTE | 2022-04-23 12:51 | PC.NURSE ---
patient verbalized understanding of discharge instructions, home medications, and follow up appointments. patient was discharge with 6 pain pills due to pharmacy not being open for the holiday.
== END 2022-04-23 12:35 | disposition home or self-care (01) ==
LOC: MEDSURG 09:44
PROVIDERS: Admitting Provider Obstetrics & Gynecology; PCP Family Medicine Adult Medicine; Visit Provider Obstetrics & Gynecology
PROC: 0UT9FZZ Resection of Uterus, Via Natural or Artificial Opening With Percutaneous Endoscopic Assistance (ICD-10-PCS; CPT 58550; principal; 2022-04-22 07:00)
PROC: 0TJB8ZZ Inspection of Bladder, Via Natural or Artificial Opening Endoscopic (ICD-10-PCS; CPT 52000; 2022-04-22 07:00)
PROC: (CPT 58661; 2022-04-22 07:00)
DX: N81.4 Uterovaginal prolapse, unspecified (principal); R32 Unspecified urinary incontinence; J44.9 Chronic obstructive pulmonary disease, unspecified; F41.9 Anxiety disorder, unspecified; M81.0 Age-related osteoporosis without current pathological fracture; F17.210 Nicotine dependence, cigarettes, uncomplicated; Z82.49 Family history of ischemic heart disease and other diseases of the circulatory system; I25.10 Atherosclerotic heart disease of native coronary artery without angina pectoris
CPT/HCPCS: 58550; 58552; 36415; 36416; 80048; 82962; 85025; 85027; 86850; 86900; 87086; 88305; G0378; J0131; J0690; J1100; J1200; J1885; J2250; J2405; J2704; J2710; J3010; J3490; J7030; J7121

== ENCOUNTER → 2022-06-03 14:50 | Outpatient (BNVA) | payer MEDICARE, MEDICAID, SELFPAY | PROVIDERS: PCP Family Medicine Adult Medicine; Visit Provider Obstetrics & Gynecology | DX: R31.9 Hematuria, unspecified (principal) | CPT/HCPCS: 87086 ==

== ENCOUNTER 2023-01-20 20:25 | Inpatient (IN) | payer MEDICARE, MEDICAID, SELFPAY ==
[2023-01-20 20:27] VITALS: BP 173/91; PULSE 114; RESP 18; TEMP 37.3; O2SAT 96; BMI 21.7
--- NOTE | 2023-01-20 20:46 | CTR_ITS ---
PROCEDURE INFORMATION: Exam: CT Head Without Contrast Exam date and time: 01/20/2023 9:14 PM Age: 62 years old Clinical indication: Altered mental status/memory loss; Additional info: AMS, confusion TECHNIQUE: Imaging protocol: Computed tomography of the head without contrast. Radiation optimization: All CT scans at this facility use at least one of these dose optimization techniques: automated exposure control; mA and/or kV adjustment per patient size (includes targeted exams where dose is matched to clinical indication); or iterative reconstruction. REPORTING DATA: Count of CT and Cardiac NM exams in prior 12 months: This patient has received 0 known CTs and 0 known cardiac nuclear medicine studies in the 12 months prior to the current study. COMPARISON: MR head wo con* [id number] 11/03/2019 11:32 AM RADIATION DOSE METRICS: Total DLP (mGy-cm): 1075.18 FINDINGS: Brain: The sulci are normal. Moderate hypodensities in supratentorial periventricular and subcortical white matter and joss, consistent with microangiopathy. No intracranial hemorrhage. Small chronic lacunar infarct in the right caudate head. Cerebral ventricles: No ventriculomegaly. Paranasal sinuses: Visualized sinuses are unremarkable. No fluid levels. Mastoid air cells: Visualized mastoid air cells are well aerated. Bones/joints: Unremarkable. No acute fracture. Soft tissues: Unremarkable. Vasculature: No hyperdense artery. CT/CT head wo con* [id number] IMPRESSION: 1. No acute intracranial abnormality.
--- NOTE | 2023-01-20 20:46 | ECG_ITS ---
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 Measurements Intervals [place] Rate: 104 P: 65 ND: 178 QRS: -5 QRSD: 97 T: 31 QT: 369 QTc: 487 Interpretive Statements SINUS TACHYCARDIA MODERATE ST DEPRESSION [0.05+ mV ST DEPRESSION] No previous ECG available for comparison Electronically Signed On 01-21-2023 7:51:04 CDT by Orlando Leroy M.D. [id number]
--- NOTE | 2023-01-20 20:46 | XRR_ITS ---
PROCEDURE INFORMATION: Exam: XR Chest Exam date and time: 01/20/2023 8:57 PM Age: 62 years old Clinical indication: Other: AMS TECHNIQUE: Imaging protocol: Radiologic exam of the chest. Views: 1 view. COMPARISON: [place] [id number] 09/10/2017 12:40 PM FINDINGS: Lungs: Emphysema. The lungs are clear. Pleural spaces: Unremarkable. No pleural effusion. No pneumothorax. Heart/Mediastinum: Unremarkable. No cardiomegaly. Bones/joints: Unremarkable. XR/XR chest 1V portable [id number] IMPRESSION: No acute findings.
[2023-01-20 20:51] VITALS: BP 163/100; PULSE 113; RESP 19; O2SAT 93
--- NOTE | 2023-01-20 20:52 | PC.NURSE ---
pt states i can hear it, I can hear that. will not elaborate on what she hears.
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
--- NOTE | 2023-01-20 20:56 | PC.NURSE ---
pt states she has had multiple TIAs, Dr. Humphreys is her neurologist. Family is at bedside now, confirms this. family states last known normal was 0800 this morning.
[2023-01-20 21:05] VITALS: BP 172/96; PULSE 112; RESP 18; O2SAT 94
--- NOTE | 2023-01-20 21:07 | PC.NURSE ---
pt making incoherent & tangential statements, family states this is not her normal. pt still AOx4
[2023-01-20] MEDS: sodium chloride 0.9% 1,000 ML 999 ML IV (21:11)
[2023-01-20 21:24] VITALS: PULSE 106; RESP 18; O2SAT 97
[2023-01-20 21:27] LABS: Basophils % 0.3 %; Hematocrit 47.2 % (36-47); Lymphocytes # 1.3 10^3/uL (0.8-4.8); Lymphocytes % 41.6 %; Mean Corpuscular HGB Conc 32.6 g/dL (30-55); Mean Corpuscular Hemoglobin 29.1 pg (27-33); Mean Corpuscular Volume 89.2 fl (85-98); Mean Platelet Volume 11.3 fL (7.4-10.4); Monocytes # 0.4 10^3/uL (0.2-0.9); Monocytes % 14.1 %; Neutrophils # 1.31 10^3/uL (1.8-7.7); Nucleated Red Blood Cells % 0 %; Platelet Count 155 10^3/cmm (157-399); Red Blood Count 5.29 10^6/uL (3.85-5.65); Red Cell Distribution Width 13.2 % (12.1-15.1); White Blood Count 3.05 10^3/uL (3.29-11.43)
[2023-01-20] MEDS: ipratropium-albuterol 3 mL Neb INHALATION (21:27)
[2023-01-20 21:36] LABS: Troponin T (5th) Once 7 ng/L (0-10)
[2023-01-20 21:57] VITALS: BP 182/100; PULSE 110; RESP 18; O2SAT 96
[2023-01-20 22:02] LABS: INR 0.91 (0.8-1.2)
[2023-01-20 22:05] LABS: Alanine Aminotransferase 13 U/L (0-33); Albumin Level 4.4 g/dL (3.5-5.2); Alkaline Phosphatase 131 U/L (35-105); Aspartate Amino Transferase 26 U/L (0-32); Blood Urea Nitrogen 9 mg/dL (8-23); C Reactive Protein 7.1 mg/L (0.0-4.9); Carbon Dioxide 25 mmol/L (22-29); Chloride 104 mmol/L (98-107); Globulin 2.5 g/dL (1.3-4.6); Glomerular Filtration Rate 100.6 mL/min (90-130); Glucose 126 mg/dL (65-115); Osmolality Calculated 296 mOsm/kg (285-295); Salicylate 5.9 mg/dL (3-10); Sodium 143 mmol/L (136-145); Thyroid Stimulating Hormone 1.55 uIU/mL (0.27-4.20); Total Bilirubin 0.3 mg/dL (0.15-1.2); Total Protein 6.9 g/dL (6.6-8.7)
[2023-01-20 22:06] LABS: Acetaminophen < 5.0 ug/mL (10-30); Alcohol Level < 10 mg/dL (0-10)
[2023-01-20 22:07] LABS: Anion Gap 17.4 (5-19); Potassium 3.4 mmol/L (3.5-5.1)
[2023-01-20 22:07] LABS: Add Urine Microscopic? YES; Bilirubin Urine Neg (Negative); Blood Urine Neg (Negative); Glucose Urine UA Norm (Normal); Ketones Urine Negative (Negative); Leukocyte Esterase Urine Trace (Negative); Nitrate Urine Negative (Negative); Protein Urine Neg (Negative); Urine Appearance Clear (CLEAR); Urine Color Yellow (Yellow); Urobilinogen Urine 1 mg/dL (Negative); pH Urine 6 (5-7)
[2023-01-20 22:08] LABS: Add Urine Culture? No; Amorphous Sediment Urine 1+ /hpf; Bacteria Urine 2+ /hpf; WBC Urine 0-4 /hpf (0-5)
--- NOTE | 2023-01-20 22:08 | PC.NURSE ---
pt shouting at family at bedside, seems to be getting increasingly agitated. pt unable to answer where she is at this time. pt was able to answer the town she was in correctly. pt pulling monitor leads off & making incoherent statements.
[2023-01-20 22:12] LABS: Amphetamines Screen Urine Negative (Negative); Barbiturates Screen Urine Negative (Negative); Benzodiazepines Screen Urine Negative (Negative); Cocaine Screen Urine Negative (Negative); Opiate Screen Urine Negative (Negative); PCP Screen Urine Negative (Negative); THC Screen Urine Positive (Negative)
[2023-01-20] MEDS: hyDRALAzine 20 mg/mL INJ 1 mL 10 MG IVP (22:25)
[2023-01-20 23:02] LABS: D Dimer 0.55 ug/mLFEU (0-0.59)
[2023-01-20] MEDS: LORazepam 2 mg/mL INJ 1 mL 1 MG IM (23:30)
--- NOTE | 2023-01-20 23:47 | PC.NURSE ---
pt pulled out IV. very agitated. yelling. gave 1mg of ativan, pt replied i know that was a muffler shot, you stupid bitches.
[2023-01-21 00:03] VITALS: RESP 17; O2SAT 97
--- NOTE | 2023-01-21 00:03 | PM.HP ---
Providers/Chief Complaint Admitting Physician: Wilfredo Hearn Primary Care Provider: Claudy Kumar MD Chief Complaint: AMS History of Present Illness Araceli Braxton is a 62 year old female was brought in by her family for evaluation due to concern of altered mental status, in ER she is noted confused, irritable, agitated, reported speaking to the monitor, speaking to people who are not there, argumentative, uncooperative, shortly before my visit yelling out I revoke power of team assembly line machine operator, I revoke power of team assembly line machine operator , it is the plaintiff's right . She is accompanied by her granddaughter, who states although she has some psychiatric history, depression, does not have history of psychosis, family are not sure what may have triggered the event. Day before yesterday she was her usual self. Her daughter reportedly did look at her home medications, there are some medications that she appears to have missed, particularly her migraine injections, they are not aware whether they have been any recent changes in medications. It is not clear occasions how she has been taking other medications. She seems to state that she does take baclofen, unclear answer about duloxetine. She seems to also take marijuana from one of the local dispensaries, reportedly does not obtain it on the street. She interacts to a very limited extent, then gets distracted, starts pushing the QR codes on her bracelet. She has remote alcohol use disorder but has not drank alcohol in several years. In ER with sinus tachycardia 110, leukopenia, 3.05, neutropenia 1.3, thrombocytopenia 1.55. UA unremarkable. UDS positive for marijuana. Head CT unremarkable. Chest x-ray without acute findings. Review of Systems General: Reports: ROS unobtainable due to mental status Medications/Allergies Home Medications Medication Instructions Recorded Confirmed Last Taken Type multivitamin 1 tab PO DAILY 11/01/20 08/19/22 04/21/22 History biotin 10,000 mcg capsule 10,000 mcg PO DAILY 08/26/21 08/19/22 04/21/22 History docusate sodium 100 mg capsule 100 mg PO BID #60 caps 04/22/22 08/19/22 Unknown Rx galcanezumab-gnlm 120 mg/mL 120 mg SUBCUT DIRECTED 04/22/22 08/19/22 04/14/22 History subcutaneous pen injector (Emgality Pen) ibuprofen 800 mg tablet 800 mg PO DAILY 04/22/22 08/19/22 04/19/22 History sumatriptan succinate 100 mg tablet See Rx Instructions .Route 05/21/22 08/19/22 Unknown Rx .COMPLEX #7 tabs varenicline 1 mg tablet See Rx Instructions .Route 06/16/22 08/19/22 Unknown Rx .COMPLEX #56 tabs aspirin 81 mg tablet,delayed 81 mg PO DAILY #90 tabs 07/16/22 08/19/22 Unknown Rx release pregabalin 100 mg capsule 100 mg PO DAILY chronic pain 90 07/16/22 08/19/22 Unknown Rx days #90 caps duloxetine 30 mg capsule,delayed 30 mg PO .morning #90 caps 08/19/22 08/19/22 Unknown Rx release (Cymbalta) albuterol sulfate 90 mcg/actuation See Rx Instructions .Route 09/14/22 Unknown Rx aerosol inhaler .COMPLEX #8.5 grams baclofen 20 mg tablet See Rx Instructions .Route 09/14/22 Unknown Rx .COMPLEX #90 tabs ibuprofen 800 mg tablet 800 mg PO Q8H #30 tabs 12/08/22 Unknown Rx fluticasone fur. 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 COPD (chronic obstructive pulmonary disease) Cystocele Depression Generalized anxiety disorder Intractable chronic migraine without aura and with status migrainosus Lack of access to transportation Major depressive disorder, recurrent severe without psychotic features Needs flu shot Osteoporosis Other stimulant dependence, in remission last use of methamphetamines in July 2017 Post-herpetic polyneuropathy Psychiatric care Uterine prolapse Vitamin D deficiency due to chronic kidney disease Well adult health check Surgical History History of surgery on arm History of total vaginal hysterectomy (TVH) 04/22/22 lap. TVH with bilat salpingo-oophrectomy. S/P cataract extraction S/P laminectomy Family History Mother CAD (coronary artery disease) Asthma Sister CAD (coronary artery disease) Asthma Thyroid disease Brother CAD (coronary artery disease) Thyroid disease Father CAD (coronary artery disease) Thyroid disease Graves disease Grandfather CAD (coronary artery disease) Other Arthritis Diabetes Hypertension Stroke Denies family history of Cancer Social History Substance/Drug Use: never Vitals/I&O/Wt Last Vital Signs Temp 99.2 F 01/20/23 20:27 Pulse 110 H 01/20/23 21:57 Resp 18 01/20/23 21:57 BP 182/100 01/20/23 21:57 Pulse Ox 96 01/20/23 21:57 O2 Del Method Room Air 01/20/23 21:57 O2 Flow Rate 2 01/20/23 20:51 01/20/23 01/20/23 01/21/23 14:59 22:59 06:59 Intake Total 1000 / 1000 Balance 1000 / 1000 Weight last 48 hrs Weight 61.235 kg Physical Exam Narrative: Accompanied by her granddaughter. Const: GENERAL APPEARANCE: combative and disheveled; not cooperative ORIENTATION/CONSCIOUSNESS: Yes awake HENMT: COMMON NORMALS: oropharynx normal Neck/C-Spine: COMMON NORMALS: no JVD Resp: COMMON NORMALS: normal respiratory effort and clear to auscultation bilaterally AUSCULTATION: clear to auscultation bilaterally Cardio: COMMON NORMALS: no JVD, regular rhythm, S1 normal heart sound present, S2 normal heart sound present and No murmurs present (Cardio) RATE: tachycardic RHYTHM: regular rhythm HEART SOUNDS: S1 normal heart sound present and S2 normal heart sound present GI: COMMON NORMALS: Normal to inspection, nondistended, normoactive bowel sounds present, Soft to palpation and non-tender PALPATION: Yes Soft to palpation Extremity: COMMON NORMALS: no joint enlargement and no pedal edema Neuro: COMMON NORMALS: moves all extremities SENSORIUM/ORIENTATION: Yes alert Psych: ATTITUDE: Yes paranoid and Yes agitated ACTIVITY/MOTOR BEHAVIOR: Yes fidgeting and Yes hyperactivity MOOD & AFFECT: Yes irritable THOUGHT PROCESS: disorganized and confused Data 01/20/23 20:50 01/20/23 20:50 A&P Assessment and plan (1) Acute alteration in mental status: Unclear cause of acute encephalopathy, possibly toxic, delirium, with acute psychosis, with noted sinus tachycardia, consideration of possibly medication withdrawal-like from baclofen, versus toxic effect, possible serotonin syndrome with duloxetine, adherence is unclear, but seems like there has been some alteration of adherence to medication as she seems to have multiple unused injections likely likely for her migraines at home. Alternatively possibly psychosis secondary to cannabis. Otherwise consideration of possible hypertensive encephalopathy, although blood pressure improved with treatment on presentation, received IV hydralazine. Continue to monitor and optimize blood pressures. Otherwise could be consideration of infection, but she is afebrile, otherwise no symptoms of infection recently, chest x-ray, UA not suggestive of infection. Monitor symptoms for any changes. Pulled out his IV. Pulling off her telemetry stickers. At times rising up in bed, will need one-to-one sitter. Requested. Discussed with family. Discussed may need additional pharmacotherapy despite risk in case of agitation, as may pose risk to self or others. In case of agitation requesting Zyprexa IM. Restart baclofen at lower dose, in case of possible baclofen withdrawal. Hold duloxetine in case of possible serotonin syndrome. Hold marijuana, consider avoiding future use. Telemetry monitoring if will allow. Remote history of strokes. Currently unable to assess with MRI. CT head noted unremarkable. Does not participate in examination, but otherwise appears at least grossly nonfocal. Plan Sinus tachycardia: D-dimer noted normal. Possibly related to the above, possible medication withdrawal versus toxicity. History of migraines: On Emgality and it used to be working very well for her as per neurology. However, per family it appears she has not used multiple doses. Had sumatriptan as needed. Smoking addiction: Was trying to quit smoking. Previously taking Chantix. Discussed with ER physician. ER note reviewed. Attestations Medical Necessity Statement*: Admission of over 2 midnights anticipated for assessment management of acute encephalopathy, acute delirium with psychosis. Diagnoses Acute alteration in mental status R41.82
--- NOTE | 2023-01-21 00:28 | PC.NURSE ---
Pt arrived on floor escorted by nurse and aide. Nurse and aide assisted pt to bathroom when she began to be combative and unable to be redirected/reoriented. Verbal de-escalation was used to calm the patient, to which the patient then agreed to be cleaned and placed in bed. The patient is now speaking strange phrases, whispering to herself, and using profanity. She is unable to recall the events of the evening which brought her here, but told me her full name, date of , correct month and year. She states that people are putting things in your ear.
[2023-01-21 01:23] VITALS: BP 182/100; PULSE 110
[2023-01-21] MEDS: cloNIDine 0.2 mg/24 hr Patch 1 PATCH TRANSDERMA (01:23)
[2023-01-21] MEDS: OLANZapine 10 mg VIAL IM (04:19)
[2023-01-21 08:00] VITALS: BP 179/96; PULSE 72; RESP 16; O2SAT 96
[2023-01-21 08:39] LABS: LAB Peripheral Smear Sent for Review
[2023-01-21] MEDS: thiamine 100 mg Tablet PO (08:54)
[2023-01-21] MEDS: folic acid 1 mg Tablet PO (08:54)
[2023-01-21] MEDS: multivitamin therapeutic Tablet 1 TAB PO (08:54)
[2023-01-21] MEDS: LORazepam 2 mg/mL INJ 1 mL IM (09:30)
--- NOTE | 2023-01-21 10:45 | PC.CHAP ---
Pastoral Care Encounter/Spiritual Assessment Type of Contact [] Declined mercerizing range feeder visit [] Patient/Family/Request visit [] Outpatient visit [] Follow-up visit [] Physician referral [] Code/Alert [x] Routine visit [] Staff referral [] Actively dying [] Patient sleeping [] Family support [] [] Out of room [] Palliative care [] [x] Receiving care in room [] Pre-surgical visit [] Trauma [] Long length of stay [] ICU visit [] Other: Relational/Emotional Strength [x] Patient feels connected with others/family/visitors/staff [] Distress [] Loneliness/isolation [] Abandonment Spirituality of Patient [x] Person of Claudia [] Attends Mu-Ism of their Claudia [x] Believes in Prayer [] Reads Bible or Spiritism materials [] There are Spiritual issues to be addressed 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 Interventions [x] Prayer [x] Active listening [x] Non-anxious presence [x] Spiritual/emotional support [] Crisis/trauma care [x] Spiritual counseling [] Bereavement support [] Provided bereavement packet [] Provided Bible/devotional materials [] Provided toy/stuffed animal, coloring book to patient or family member [] Provided Communion [] Anointing/[place] [] Salvation [x] Completed spiritual assessment [] Other: Impact on Illness or Injury [] Angry [] Fearful [] Anxious [] Often cries [] Exhaustion [] Unable to work [] Unable to attend hindu [] Unable to walk/stand [] Unable to read [] Unable to drive [] Unable to eat/drink [] Unable to sleep [] Unable to be with family [] Patient intubated [] Other: Summary has some infection in the blood negative a bout her health well go home home at some point Time spent with patient 10 mins
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
[2023-01-21 16:00] VITALS: BP 125/80; PULSE 109; RESP 17; O2SAT 91
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
[2023-01-21 19:56] VITALS: BP 129/84; PULSE 94; RESP 16; TEMP 36.8; O2SAT 90
[2023-01-22] VITALS (13 sets, daily range): BP systolic 99–120; BP diastolic 63–77; PULSE 66–101; RESP 15–22; TEMP 36.6–37; O2SAT 3–95
[2023-01-22 04:48] LABS: Basophils % 0.4 %; Eosinophils % 0.7 %; Hematocrit 48.1 % (36-47); Lymphocytes # 1.3 10^3/uL (0.8-4.8); Lymphocytes % 45.3 %; Mean Corpuscular HGB Conc 32.6 g/dL (30-55); Mean Corpuscular Hemoglobin 29.1 pg (27-33); Mean Corpuscular Volume 89.2 fl (85-98); Mean Platelet Volume 10.4 fL (7.4-10.4); Monocytes # 0.3 10^3/uL (0.2-0.9); Monocytes % 11.6 %; Neutrophils # 1.16 10^3/uL (1.8-7.7); Nucleated Red Blood Cells % 0 %; Platelet Count 145 10^3/cmm (157-399); Red Blood Count 5.39 10^6/uL (3.85-5.65); Red Cell Distribution Width 13.3 % (12.1-15.1); White Blood Count 2.76 10^3/uL (3.29-11.43)
[2023-01-22 05:09] LABS: Alanine Aminotransferase 12 U/L (0-33); Albumin Level 3.9 g/dL (3.5-5.2); Alkaline Phosphatase 126 U/L (35-105); Anion Gap 14.5 (5-19); Aspartate Amino Transferase 25 U/L (0-32); Blood Urea Nitrogen 8 mg/dL (8-23); Calcium 8.9 mg/dL (8.5-10.5); Carbon Dioxide 28 mmol/L (22-29); Chloride 107 mmol/L (98-107); Globulin 2.5 g/dL (1.3-4.6); Glomerular Filtration Rate 100.6 mL/min (90-130); Glucose 88 mg/dL (65-115); Osmolality Calculated 300 mOsm/kg (285-295); Potassium 3.5 mmol/L (3.5-5.1); Sodium 146 mmol/L (136-145); Total Bilirubin 0.5 mg/dL (0.15-1.2); Total Protein 6.4 g/dL (6.6-8.7)
--- NOTE | 2023-01-22 06:12 | PC.NURSE ---
Held lovenox due to patient refusal, patient became agitated/combative upon trying to administer. Dr. Hearn notified. Dose time changed.
[2023-01-22] MEDS: enoxaparin 40 mg/0.4 mL Syringe SUBCUT (09:30)
[2023-01-22] MEDS: multivitamin therapeutic Tablet 1 TAB PO (09:30)
[2023-01-22] MEDS: thiamine 100 mg Tablet PO (09:30)
[2023-01-22] MEDS: aspirin 81 mg EC Tablet PO (09:30)
[2023-01-22] MEDS: lisinopril 10 mg Tablet PO (09:30)
[2023-01-22] MEDS: folic acid 1 mg Tablet PO (09:30)
[2023-01-22] MEDS: ipratropium-albuterol 3 mL Neb INHALATION ×3 (09:55→20:26)
[2023-01-22 10:42] LABS: HIV 1 & 2 Antibody Non-Reactive (Non-Reactiv); HIV 1 & 2 Antigen Non-Reactive (Non-Reactiv)
[2023-01-22] MEDS: doxycycline 100 mg Tablet PO ×2 (11:58→17:26)
[2023-01-22 12:54] LABS: Adenovirus Not Detected (NOT DETECT); Chlamydia Pneumoniae Not Detected (NOT DETECT); Coronavirus 229E,HKU1,NL63,OC4 Not Detected (NOT DETECT); Human Metapneumovirus Not Detected (NOT DETECT); Human Rhinovirus/Enterovirus Not Detected (NOT DETECT); Influenza A Not Detected (NOT DETECT); Influenza A H1 Not Detected (NOT DETECT); Influenza A H1-2009 Not Detected (NOT DETECT); Influenza A H3 Not Detected (NOT DETECT); Influenza B Not Detected (NOT DETECT); Mycoplasma Pneumoniae Not Detected (NOT DETECT); Parainfluenza Virus Type 1 Not Detected (NOT DETECT); Parainfluenza Virus Type 2 Not Detected (NOT DETECT); Parainfluenza Virus Type 3 Not Detected (NOT DETECT); Parainfluenza Virus Type 4 Not Detected (NOT DETECT); Respiratory Syncytial Virus A Not Detected (NOT DETECT); Respiratory Syncytial Virus B Not Detected (NOT DETECT)
[2023-01-22 13:06] LABS: SARS-COV-2 Detected (NOT DETECT)
--- NOTE | 2023-01-22 13:26 | PM.PN ---
Subjective Subjective: Araceli reports she is doing better this morning. She states she is alert and oriented, and reports no confusion. Psychiatry has come by, and believes she has improved significantly as well. She does complain of cough. She relates some nausea several days ago. She tells me that her cgytozfr-rg-llg had COVID. States she has been short of breath for months to years with her COPD. Medications: Reviewed: Yes Vitals/I&O/Wt Last Vital Signs Temp 98.6 F 01/22/23 11:17 Pulse 91 01/22/23 11:17 Resp 18 01/22/23 11:17 BP 108/71 01/22/23 11:17 Pulse Ox 88 L 01/22/23 13:03 O2 Del Method Nasal Cannula 01/22/23 11:17 O2 Flow Rate 3 01/22/23 13:03 01/21/23 01/22/23 01/22/23 22:59 06:59 14:59 Intake Total 240 / 480 480 / 480 Balance 240 / 480 480 / 480 Weight last 48 hrs Weight 61.235 kg Physical Exam Narrative: General exam no distress. Alert and oriented with no apparent paranoia Neck is supple Cardiovascular regular rate and rhythm, no murmur Lungs a few faint wheezes Abdomen is soft Extremities no cyanosis clubbing edema Neuro no obvious focal deficits Data 01/22/23 04:41 01/22/23 04:41 Other Labs: After visiting her early in the morning and this afternoon a COVID test was done which is PCR positive. A&P Assessment and plan (1) Acute alteration in mental status: Unclear cause of acute encephalopathy, possibly toxic, delirium, with acute psychosis, with noted sinus tachycardia, consideration of possibly medication withdrawal-like from baclofen, versus toxic effect, possible serotonin syndrome with duloxetine. Alternatively possibly psychosis secondary to cannabis. She tells me today that she usually uses the baclofen as needed. This will be amended. Hypertensive encephalopathy unlikely. Blood pressure is high. Lisinopril 10 mg daily initiated No evidence of meningitis Secondary to some tangential thinking, paranoia, I am worried about paranoid psychosis from a psychiatric diagnosis. Psychiatry consultation obtained. Markedly better today. Can discontinue one-on-one. Counseled on avoiding all marijuana Zyprexa as needed ordered. Dose was given this morning at 4:20 AM. CBC, CMP tomorrow morning Remote history of strokes. CT head noted unremarkable. No focal deficits Plan Mild leukopenia, thrombocytopenia. Now with some respiratory symptoms. COVID PCR is positive. Secondary to her need for oxygen, 3 L today and room air yesterday will initiate on remdesivir and dexamethasone. Repeat laboratory tomorrow to include dimer and CRP. If she is showing improvement treatment could be truncated. I suspect she may have needed oxygen prior to coming in given her history and borderline oxygen levels. Doxycycline initiated empirically Hypoxia, see above COPD. DuoNeb, budesonide. Sinus tachycardia: D-dimer noted normal. Resolved History of migraines. No headache currently Tobacco dependency Full code Lovenox for DVT prophylaxis Attestations Medical Necessity Statement*: Needs continued hospitalization for treatment of COVID 19 with hypoxia with remdesivir, dexamethasone Diagnoses Acute alteration in mental status R41.82 Time Spent (min) 26
[2023-01-22] MEDS: dexamethasone 10 mg/mL INJ 6 MG IVP (15:20)
[2023-01-22] MEDS: remdesivir 200 MG in sodium chloride 0.9% (100 ml) 60 ML 100 MG IV (15:20)
[2023-01-22] MEDS: baclofen 10 mg Tablet PO (17:29)
[2023-01-22] MEDS: acetaminophen 325 mg Tablet 650 MG PO (17:29)
[2023-01-22] MEDS: budesonide 0.5 mg/2 mL Neb INHALATION (20:26)
[2023-01-23] VITALS (13 sets, daily range): BP systolic 104–136; BP diastolic 67–82; PULSE 71–106; RESP 16–22; TEMP 36.6–36.9; O2SAT 78–98
[2023-01-23 05:02] LABS: Hematocrit 44.7 % (36-47); Lymphocytes # 0.6 10^3/uL (0.8-4.8); Lymphocytes % 12.1 %; Mean Corpuscular HGB Conc 32.4 g/dL (30-55); Mean Corpuscular Hemoglobin 29.1 pg (27-33); Mean Corpuscular Volume 89.6 fl (85-98); Mean Platelet Volume 10.7 fL (7.4-10.4); Monocytes # 0.3 10^3/uL (0.2-0.9); Monocytes % 6.9 %; Neutrophils # 4.01 10^3/uL (1.8-7.7); Neutrophils % 80.8 %; Nucleated Red Blood Cells % 0 %; Platelet Count 144 10^3/cmm (157-399); Red Blood Count 4.99 10^6/uL (3.85-5.65); Red Cell Distribution Width 13.2 % (12.1-15.1); White Blood Count 4.96 10^3/uL (3.29-11.43)
[2023-01-23 05:20] LABS: C Reactive Protein 20.3 mg/L (0.0-4.9)
[2023-01-23 05:22] LABS: Alanine Aminotransferase 12 U/L (0-33); Albumin Level 3.5 g/dL (3.5-5.2); Alkaline Phosphatase 114 U/L (35-105); Anion Gap 11.8 (5-19); Aspartate Amino Transferase 20 U/L (0-32); Blood Urea Nitrogen 17 mg/dL (8-23); Calcium 8.9 mg/dL (8.5-10.5); Carbon Dioxide 28 mmol/L (22-29); Chloride 104 mmol/L (98-107); Globulin 2.5 g/dL (1.3-4.6); Glomerular Filtration Rate 124.2 mL/min (90-130); Glucose 143 mg/dL (65-115); Osmolality Calculated 294 mOsm/kg (285-295); Potassium 3.8 mmol/L (3.5-5.1); Sodium 140 mmol/L (136-145); Total Bilirubin 0.4 mg/dL (0.15-1.2)
[2023-01-23 05:37] LABS: D Dimer 0.41 ug/mLFEU (0-0.59)
[2023-01-23] MEDS: lisinopril 10 mg Tablet PO (08:53)
[2023-01-23] MEDS: aspirin 81 mg EC Tablet PO (08:53)
[2023-01-23] MEDS: doxycycline 100 mg Tablet PO ×2 (08:53→17:52)
[2023-01-23] MEDS: folic acid 1 mg Tablet PO (08:53)
[2023-01-23] MEDS: enoxaparin 40 mg/0.4 mL Syringe SUBCUT (08:54)
[2023-01-23] MEDS: multivitamin therapeutic Tablet 1 TAB PO (08:54)
[2023-01-23] MEDS: thiamine 100 mg Tablet PO (08:54)
--- NOTE | 2023-01-23 08:56 | PC.SOCIAL ---
Pg 2 IMM Explained to pt Pg 2 IMM. No questions voiced. Provided pt a copy. Initialed, dated, & timed a copy & placed in chart.
[2023-01-23] MEDS: ipratropium-albuterol 3 mL Neb INHALATION ×3 (09:23→19:21)
[2023-01-23] MEDS: budesonide 0.5 mg/2 mL Neb INHALATION ×2 (09:23→19:21)
--- NOTE | 2023-01-23 11:14 | CTR_ITS ---
PROCEDURE INFORMATION: Exam: CT Chest Without Contrast; Diagnostic Exam date and time: 01/23/2023 9:11 PM Age: 62 years old Clinical indication: Shortness of breath; Patient HX: SOB. Covid +. History of copd. TECHNIQUE: Imaging protocol: Diagnostic computed tomography of the chest without contrast. Radiation optimization: All CT scans at this facility use at least one of these dose optimization techniques: automated exposure control; mA and/or kV adjustment per patient size (includes targeted exams where dose is matched to clinical indication); or iterative reconstruction. REPORTING DATA: Count of CT and Cardiac NM exams in prior 12 months: This patient has received [address] and 0 known cardiac nuclear medicine studies in the 12 months prior to the current study. COMPARISON: CR (CHEST, ) 01/20/2023 8:57 PM RADIATION DOSE METRICS: Total DLP (mGy-cm): 284.33 FINDINGS: Lungs: Centrilobular emphysema. 3.9 cm focal consolidation in the posteroinferior right lower lobe. Patchy consolidation in the posterior left lower lobe. Mild atelectasis in the lung bases. Pleural spaces: Unremarkable. No pneumothorax. No pleural effusion. Heart: The heart size is normal. Coronary arteries: Coronary artery calcifications. Lymph nodes: Unremarkable. No enlarged lymph nodes. Vasculature: Unremarkable. No aortic aneurysm. Liver: Calcified granulomas in the liver. Spleen: Calcified granulomas in the spleen. Bones/joints: Unremarkable. No acute fracture. Soft tissues: Unremarkable. CT/CT chest wo con [id number] IMPRESSION: 1. Bilateral lower lobe pneumonia, left greater than right. This is most likely bacterial pneumonia and does not have the appearance typical of COVID-19 pneumonia. 2. Emphysema. COMMENTS: In the absence of a history or active diagnosis of lung cancer, it is recommended that this patient with emphysema be evaluated for enrollment in a low dose CT lung cancer screening program.
[2023-01-23 11:47] LABS: Iron 32 ug/dL (37-145); Percent Saturation 15.3 % (20-50); Total Iron Binding Capacity 208 mcg/dl; Unsaturated Iron Binding 176 ug/dL (112-347)
[2023-01-23 11:59] LABS: Procalcitonin 0.06 ng/mL (0-0.5)
[2023-01-23 12:32] LABS: Vitamin B12 1514 pg/mL (232-1245)
[2023-01-23] MEDS: duloxetine 30 mg Capsule PO (13:24)
[2023-01-23] MEDS: pregabalin 50 mg Capsule PO ×2 (13:24→17:52)
[2023-01-23] MEDS: dexamethasone 10 mg/mL INJ 6 MG IVP (14:11)
[2023-01-23] MEDS: sodium chloride 0.45% 1,000 ML 50 ML IV (14:11)
[2023-01-23] MEDS: acetaminophen 325 mg Tablet 650 MG PO (15:31)
--- NOTE | 2023-01-23 15:39 | P.PN_ITS ---
Subjective Subjective: Hospital course, labs appreciated. On examination patient is awake and alert. Denies any new complaints. States she is feeling a lot better. Denies any nausea, vomiting, headache. Still requiring up to 6 L of oxygen supplementation. Asking if she is going to go home today. Blood work appreciated for normal white count, hemoglobin, stable chronic thrombocytopenia, D-dimer of 0.41, stable CMP, CRP of 20.3, COVID-19 PCR positive Medications: Reviewed: Yes Vitals/I&O/Wt Last Vital Signs Temp 98.2 F 01/23/23 11:13 Pulse 97 01/23/23 13:30 Resp 22 H 01/23/23 13:30 BP 136/82 01/23/23 11:13 Pulse Ox 93 01/23/23 13:30 O2 Del Method Nasal Cannula 01/23/23 13:30 O2 Flow Rate 3 01/23/23 13:30 01/23/23 01/23/23 01/23/23 06:59 14:59 22:59 Intake Total 240 / 240 Balance 240 / 240 Physical Exam Narrative: General exam no distress. AOx3 no apparent paranoia Neck is supple Cardiovascular regular rate and rhythm, no murmur Lungs a few faint wheezes Abdomen is soft Extremities no cyanosis clubbing edema Neuro no obvious focal deficits Data 01/23/23 04:24 01/23/23 04:24 A&P Assessment and plan (1) Acute alteration in mental status: Unclear cause of acute encephalopathy, most likely in setting of viral prodrome from COVID-19 but cannot rule out polypharmacy versus drug withdrawal. Appreciate psychiatry evaluation. Urine drug screen negative. History of amphetamines in past. Zyprexa as needed. Patient has not needed any antipsychotic medications in more than 24 hours No evidence of meningitis on admission. Frequent reorientation. Sitter as needed. Restart home dose of duloxetine 30 mg daily, pregabalin 50 mg twice daily. Continue baclofen as needed. (2) COVID-19: Hypoxia secondary to COVID-19 pneumonia: Mild to moderate disease. Oxygen supplementation keeping saturation over 88%. Dexamethasone 6 mg daily. Remdesivir to finish a 3-5 day course. DuoNeb every 6 hour, budesonide twice daily Pulmonary toilet with incentive spirometry flutter valve. We will monitor inflammatory markers including CRP, D-dimer every 48 hours. D-dimer negative. Continue with prophylactic anticoagulation. Check sputum culture. For now continue with doxycycline 100 mg twice daily Given hypoxia will try to keep patient as negative as possible. Check echocardiogram. Lasix as per fluid status. Strict input output charting, daily weights. (3) Psychiatric care: Plan . Sinus tachycardia: D-dimer noted normal. Resolved History of migraines. No headache currently Tobacco dependency Regular diet Protonix for PUD prophylaxis Full code Lovenox for DVT prophylaxis Discharge plan: Plan to discharge the next 24 hours back home after completion of 3-day course of remdesivir depending on oxygen supplementation and CRP levels Attestations Medical Necessity Statement*: Requires further hospitalization for management of hypoxia in setting of COVID- 19, resolved AMS in setting of possible viral prodrome versus drug withdrawal Diagnoses Acute alteration in mental status R41.82 COVID-19 U07.1 Psychiatric care
[2023-01-23] MEDS: pantoprazole DR 40 mg Tablet PO (17:07)
[2023-01-23] MEDS: remdesivir 100 MG in sodium chloride 0.9% (100 ml) 80 ML IV (17:51)
[2023-01-24] VITALS (7 sets, daily range): BP systolic 115–121; BP diastolic 68–73; PULSE 64–85; RESP 16–18; TEMP 36.4–36.6; O2SAT 95–98
[2023-01-24] MEDS: ipratropium-albuterol 3 mL Neb INHALATION ×3 (01:11→14:26)
[2023-01-24 05:20] LABS: Hematocrit 39.7 % (36-47); Lymphocytes # 1.1 10^3/uL (0.8-4.8); Lymphocytes % 13.7 %; Mean Corpuscular HGB Conc 32.5 g/dL (30-55); Mean Corpuscular Hemoglobin 29.2 pg (27-33); Mean Corpuscular Volume 89.8 fl (85-98); Mean Platelet Volume 10.7 fL (7.4-10.4); Monocytes # 0.5 10^3/uL (0.2-0.9); Monocytes % 5.7 %; Neutrophils # 6.33 10^3/uL (1.8-7.7); Neutrophils % 80.5 %; Nucleated Red Blood Cells % 0 %; Platelet Count 130 10^3/cmm (157-399); Red Blood Count 4.42 10^6/uL (3.85-5.65); Red Cell Distribution Width 13.4 % (12.1-15.1); White Blood Count 7.87 10^3/uL (3.29-11.43)
[2023-01-24 05:39] LABS: Estmated Average Glucose 126
[2023-01-24 05:45] LABS: Alanine Aminotransferase 9 U/L (0-33); Albumin Level 3.2 g/dL (3.5-5.2); Alkaline Phosphatase 99 U/L (35-105); Anion Gap 9.7 (5-19); Aspartate Amino Transferase 15 U/L (0-32); Blood Urea Nitrogen 12 mg/dL (8-23); Calcium 8.4 mg/dL (8.5-10.5); Carbon Dioxide 29 mmol/L (22-29); Chloride 107 mmol/L (98-107); Cholesterol 106 mg/dL (0-200); Globulin 2.5 g/dL (1.3-4.6); Glomerular Filtration Rate 124.2 mL/min (90-130); Glucose 121 mg/dL (65-115); HDL Cholesterol 46 mg/dL (60-100); LDL Cholesterol Calculated 49 mg/dL (50-129); Magnesium 1.9 mg/dL (1.7-2.3); Osmolality Calculated 295 mOsm/kg (285-295); Potassium 3.7 mmol/L (3.5-5.1); Sodium 142 mmol/L (136-145); Total Bilirubin 0.3 mg/dL (0.15-1.2); Total Protein 5.7 g/dL (6.6-8.7); Triglycerides 54 mg/dL (0-150); VLDL Cholestrol Calculation 11 mg/dL (0-30)
[2023-01-24 05:57] LABS: Folate Level 11.3 ng/mL (4.8-37.3)
[2023-01-24] MEDS: budesonide 0.5 mg/2 mL Neb INHALATION (07:52)
[2023-01-24] MEDS: pantoprazole DR 40 mg Tablet PO (09:49)
[2023-01-24] MEDS: doxycycline 100 mg Tablet PO (09:49)
[2023-01-24] MEDS: duloxetine 30 mg Capsule PO (09:49)
[2023-01-24] MEDS: multivitamin therapeutic Tablet 1 TAB PO (09:49)
[2023-01-24] MEDS: pregabalin 50 mg Capsule PO (09:49)
[2023-01-24] MEDS: aspirin 81 mg EC Tablet PO (09:49)
[2023-01-24] MEDS: thiamine 100 mg Tablet PO (09:49)
[2023-01-24] MEDS: nicotine 14 mg Patch 1 PATCH TRANSDERMA (09:50)
[2023-01-24] MEDS: folic acid 1 mg Tablet PO (09:50)
[2023-01-24] MEDS: enoxaparin 40 mg/0.4 mL Syringe SUBCUT (09:50)
[2023-01-24] MEDS: lisinopril 10 mg Tablet PO (09:50)
[2023-01-24] MEDS: dexamethasone 10 mg/mL INJ 6 MG IVP (13:37)
--- NOTE | 2023-01-24 13:46 | PM.DCS ---
Discharge Providers Date of Admission: 01/20/23 23:46 Date of Discharge: January 24, 2023 Attending Provider at Admission: Wilfredo Hearn Attending Provider at Discharge: Oneil Mayo MD Consults: Psychiatric: Dr. Sheikh Primary Care Provider: Claudy Kumar MD Diagnoses at Discharge Discharge Diagnosis (1) Acute alteration in mental status: Status: Acute (2) COVID-19: Status: Acute (3) Psychiatric care: Status: Acute Reason for Visit Reason for Visit: AMS Brief History: History as per HPI: Araceli Braxton is a 62 year old female was brought in by her family for evaluation due to concern of altered mental status, in ER she is noted confused, irritable, agitated, reported speaking to the monitor, speaking to people who are not there, argumentative, uncooperative, shortly before my visit yelling out I revoke power of criminal defense attorney, I revoke power of criminal defense attorney , it is the plaintiff's right .? She is accompanied by her granddaughter, who states although she has some psychiatric history, depression, does not have history of psychosis, family are not sure what may have triggered the event.? Day before yesterday she was her usual self.? Her daughter reportedly did look at her home medications, there are some medications that she appears to have missed, particularly her migraine injections, they are not aware whether they have been any recent changes in medications.? It is not clear occasions how she has been taking other medications. She seems to state that she does take baclofen, unclear answer about duloxetine.? She seems to also take marijuana from one of the local dispensaries, reportedly does not obtain it on the street. She interacts to a very limited extent, then gets distracted, starts pushing the QR codes on her bracelet. She has remote alcohol use disorder but has not drank alcohol in several years. In ER with sinus tachycardia 110, leukopenia, 3.05, neutropenia 1.3, thrombocytopenia 1.55.? UA unremarkable.? UDS positive for marijuana.? Head CT unremarkable.? Chest x-ray without acute findings. Hospital Course Hospital Course Patient was admitted to the hospital further evaluation and management of altered mental status which on admission was thought to be secondary to either acute psychosis versus possible withdrawal from medications like baclofen or polypharmacy leading to serotonin like syndrome. 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 Given extreme psychosis requiring multiple psychotic medications on admission psychiatry was consulted. Her medications were adjusted. During hospitalization she was found to have mild oxygen requirement, leukopenia and thrombocytopenia hence she was checked for COVID-19 and it turned out to be positive. She was started on treatment for mild COVID-19 with IV steroids, remdesivir for 3 days. Patient has remained stable and her hospitalization has been otherwise unremarkable. Patient is back to her baseline mentation for last 24 to 48 hours. She has finished a course of 3 days of remdesivir. Home oxygen evaluation has been done prior to discharge. She is been discharged in hemodynamically stable condition. Physical Exam Narrative: General exam no distress. AOx3 no apparent paranoia Neck is supple Cardiovascular regular rate and rhythm, no murmur Lungs a few faint wheezes Abdomen is soft Extremities no cyanosis clubbing edema Neuro no obvious focal deficits Discharge Data Studies Completed and Pending Completed Studies During Hospitalization Category Date Time Status CT chest wo con [id number] Routine Cat Scan 01/23/23 11:[address] head wo con* [id number] Stat Cat Scan 01/20/23 20:46 Completed XR chest 1V portable [id number] Stat Exams 01/20/23 20:46 Completed Pending at discharge Category Date Time Status MAG [Magnesium] AM LABS Lab 01/25/23 04:00 Ordered MAG [Magnesium] AM LABS Lab 01/26/23 04:00 Ordered Sputum Culture and Gram Stain Stat Lab 01/23/23 13:55 Received Radiology Impressions Chest X-Ray 01/20/23 20:46 IMPRESSION: No acute findings. Head CT 01/20/23 20:46 IMPRESSION: 1. No acute intracranial abnormality. Chest CT 01/23/23 11:14 IMPRESSION: 1. Bilateral lower lobe pneumonia, left greater than right. This is most likely bacterial pneumonia and does not have the appearance typical of COVID-19 pneumonia. 2. Emphysema. COMMENTS: In the absence of a history or active diagnosis of lung cancer, it is recommended that this patient with emphysema be evaluated for enrollment in a low dose CT lung cancer screening program. Laboratory Results WBC 7.87 10^3/uL (3.29-11.43) 01/24/23 04:46 RBC 4.42 10^6/uL (3.85-5.65) 01/24/23 04:46 Hgb 12.90 g/dL (11.27-16.99) 01/24/23 04:46 Hct 39.7 % (36-47) 01/24/23 04:46 MCV 89.8 fl (85-98) 01/24/23 04:46 MCH 29.2 pg (27-33) 01/24/23 04:46 MCHC 32.5 g/dL (30-55) 01/24/23 04:46 RDW 13.4 % (12.1-15.1) 01/24/23 04:46 Plt Count 130 10^3/cmm (157-399) L 01/24/23 04:46 MPV 10.7 fL (7.4-10.4) H 01/24/23 04:46 Neut % (Auto) 80.5 % 01/24/23 04:46 Lymph % (Auto) 13.7 % 01/24/23 04:46 [place] % (Auto) 5.7 % 01/24/23 04:46 Eos % (Auto) 0.0 % 01/24/23 04:46 Baso % (Auto) 0.0 % 01/24/23 04:46 Neut # (Auto) 6.33 10^3/uL (1.8-7.7) 01/24/23 04:46 Lymph # (Auto) 1.1 10^3/uL (0.8-4.8) 01/24/23 04:46 [place] # (Auto) 0.5 10^3/uL (0.2-0.9) 01/24/23 04:46 Eos # (Auto) 0.0 10^3/uL (0.0-0.8) 01/24/23 04:46 Baso # (Auto) 0.0 10^3/uL (0.0-0.1) 01/24/23 04:46 Nucleated RBC % (auto) 0 % 01/24/23 04:46 Nucleated RBCs # 0.0 /100WBC 01/24/23 04:46 Peripher Smr Path Cons Sent for review 01/20/23 20:50 PT 12.60 SECONDS (12.1-14.9) 01/20/23 21:42 INR 0.91 (0.8-1.2) 01/20/23 21:42 D-Dimer 0.41 ug/mLFEU (0-0.59) 01/23/23 04:24 Sodium 142 mmol/L (136-145) 01/24/23 04:46 Potassium 3.7 mmol/L (3.5-5.1) 01/24/23 04:46 Chloride 107 mmol/L (98-107) 01/24/23 04:46 Carbon Dioxide 29 mmol/L (22-29) 01/24/23 04:46 Anion Gap 9.7 (5-19) 01/24/23 04:46 BUN 12 mg/dL (8-23) 01/24/23 04:46 Creatinine 0.5 mg/dL (0.5-0.9) 01/24/23 04:46 GFR Calculation 124.2 mL/min (90-130) 01/24/23 04:46 Glucose 121 mg/dL (65-115) H 01/24/23 04:46 Estimat Average Glucose 126 01/24/23 04:46 Hemoglobin A1c 6.0 % (4.0-6.0) 01/24/23 04:46 Calculated Osmolality 295 mOsm/kg (285-295) 01/24/23 04:46 Calcium 8.4 mg/dL (8.5-10.5) L 01/24/23 04:46 Magnesium 1.9 mg/dL (1.7-2.3) 01/24/23 04:46 Iron 32 ug/dL (37-145) L 01/23/23 04:24 TIBC 208 mcg/dl 01/23/23 04:24 % Saturation 15.3 % (20-50) L 01/23/23 04:24 Unsat Iron Binding 176 ug/dL (112-347) 01/23/23 04:24 Total Bilirubin 0.3 mg/dL (0.15-1.2) 01/24/23 04:46 AST 15 U/L (0-32) 01/24/23 04:46 ALT 9 U/L (0-33) 01/24/23 04:46 Alkaline Phosphatase 99 U/L (35-105) 01/24/23 04:46 Troponin T Gen 5 ng/L 7 ng/L (0-10) 01/20/23 20:50 C-Reactive Protein 20.3 mg/L (0.0-4.9) H 01/23/23 04:24 C-Reactive Protein Cancelled 01/23/23 04:24 Total Protein 5.7 g/dL (6.6-8.7) L 01/24/23 04:46 Albumin 3.2 g/dL (3.5-5.2) L 01/24/23 04:46 Globulin 2.5 g/dL (1.3-4.6) 01/24/23 04:46 Triglycerides 54 mg/dL (0-150) 01/24/23 04:46 Cholesterol 106 mg/dL (0-200) 01/24/23 04:46 LDL Cholesterol, Calc 49 mg/dL (50-129) L 01/24/23 04:46 Total VLDL Cholesterol 11 mg/dL (0-30) 01/24/23 04:46 HDL Cholesterol 46 mg/dL (60-100) L 01/24/23 04:46 Cholesterol/HDL Ratio 2.30 mg/dL (0.0-4.40) 01/24/23 04:46 Vitamin B12 1514 pg/mL (232-1245) H 01/23/23 04:24 Folate 11.3 ng/mL (4.8-37.3) 01/24/23 04:46 Procalcitonin 0.06 ng/mL (0-0.5) 01/23/23 04:24 TSH 1.55 uIU/mL (0.27-4.20) 01/20/23 20:50 Urine Color Yellow (Yellow) 01/20/23 21:56 Urine Appearance Clear (CLEAR) 01/20/23 21:56 Urine pH 6 (5-7) 01/20/23 21:56 Ur Specific [place] 1.010 (1.005-1.030) 01/20/23 21:56 Urine Protein Neg (Negative) 01/20/23 21:56 Urine Glucose (UA) Norm (Normal) 01/20/23 21:56 Urine Ketones Negative (Negative) 01/20/23 21:56 Urine Blood Neg (Negative) 01/20/23 21:56 Urine Nitrate Negative (Negative) 01/20/23 21:56 Urine Bilirubin Neg (Negative) 01/20/23 21:56 Urine Urobilinogen 1 mg/dL (Negative) H 01/20/23 21:56 Ur Leukocyte Esterase Trace (Negative) H 01/20/23 21:56 Urine RBC None /hpf (0-2) 01/20/23 21:56 Urine WBC 0-4 /hpf (0-5) H 01/20/23 21:56 Ur Squamous Epith Cells 5-10 /hpf (0-5) H 01/20/23 21:56 Amorphous Sediment 1+ /hpf 01/20/23 21:56 Urine Bacteria 2+ /hpf (NONE) H 01/20/23 21:56 Salicylates 5.9 mg/dL (3-10) 01/20/23 20:50 Urine Opiates Screen Negative ng/mL (Negative) 01/20/23 21:56 Acetaminophen < 5.0 ug/mL (10-30) L 01/20/23 20:50 Ur Barbiturates Screen Negative ng/mL (Negative) 01/20/23 21:56 Ur Phencyclidine Scrn Negative ng/mL (Negative) 01/20/23 21:56 Ur Amphetamines Screen Negative ng/mL (Negative) 01/20/23 21:56 U Benzodiazepines Scrn Negative ng/mL (Negative) 01/20/23 21:56 Urine Cocaine Screen Negative ng/mL (Negative) 01/20/23 21:56 U Marijuana (THC) Screen Positive ng/mL (Negative) H 01/20/23 21:56 Ethyl Alcohol < 10 mg/dL (0-10) 01/20/23 20:50 Coronavirus 229E (PCR) Not detected (NOT DETECT) 01/22/23 10:30 HIV 1&2 Ab & HIV 1 Ag Non-reactive (Non-Reactiv) 01/22/23 04:41 HIV 1&2 Antibody Non-reactive (Non-Reactiv) 01/22/23 04:41 SARS-CoV-2 (PCR) Detected (NOT DETECT) A 01/22/23 10:30 Vitals Last Vital Signs Temp 97.7 F 01/24/23 12:00 Pulse 82 01/24/23 12:00 Resp 17 01/24/23 12:00 BP 121/73 01/24/23 12:00 Pulse Ox 95 01/24/23 12:00 O2 Del Method Nasal Cannula 01/24/23 12:00 O2 Flow Rate 3 01/24/23 07:54 Discharge Plan Discharge Patient Disposition: Home Condition: Stable Prescriptions: New lisinopril 10 mg Tablet 10 mg PO DAILY Qty: 30 0RF dexamethasone 6 mg tablet 6 mg PO DAILY Qty: 10 0RF doxycycline monohydrate 100 mg Tablet 100 mg PO BID Qty: 14 0RF Continued multivitamin Tablet 1 tab PO DAILY biotin 10,000 mcg capsule 10,000 mcg PO DAILY duloxetine [Cymbalta] 30 mg capsule,delayed release(DR/EC) 30 mg PO .morning Qty: 90 2RF Rx Instructions: Take one capsule every morning aspirin 81 mg tablet,delayed release (DR/EC) 81 mg PO DAILY Qty: 90 3RF Rx Instructions: TAKE 1 TABLET BY MOUTH ONCE DAILY albuterol sulfate 90 mcg/actuation HFA aerosol inhaler See Rx Instructions .ROUTE .COMPLEX Qty: 8.5 10RF Dose Instruction: INHALE 2 PUFFS INTO THE LUNGS EVERY 6 HOURS NEEDED FOR SHORTNESS OF BREATH OR WHEEZING Rx Instructions: INHALE 2 PUFFS INTO THE LUNGS EVERY 6 HOURS NEEDED FOR SHORTNESS OF BREATH OR WHEEZING baclofen 20 mg tablet See Rx Instructions .ROUTE .COMPLEX Qty: 90 10RF Dose Instruction: TAKE 1 TABLET BY MOUTH THREE TIMES DAILY NEEDED FOR CHRONIC BACK PAIN Rx Instructions: TAKE 1 TABLET BY MOUTH THREE TIMES DAILY NEEDED FOR CHRONIC BACK PAIN Trelegy Ellipta 200-62.5-25 mcg blister with device 1 inh inhalation DAILY 90 Days Qty: 180 1RF Emgality Pen 120 mg/mL pen injector 120 mg SUBCUT DIRECTED Rx Instructions: INJECT 1 ML(120MG) SUBCUTANEOUSLY EVERY 30 DAYS docusate sodium 100 mg Capsule 100 mg PO BID Qty: 60 0RF Changed pregabalin 100 mg capsule 50 mg PO DAILY 90 Days Qty: 90 3RF Discontinued ibuprofen 800 mg tablet 800 mg PO Q8H Qty: 30 0RF Discharge Orders: Discharge Order (Routine); Ordered 01/24/23 Ordered By: Oneil Mayo Other Ambulatory Orders: DME: Oxygen (Order) Location: None Selected Ordered By: Fabian Tapia Referrals: [facility] [place] Claudy Kumar MD [Primary Care Provider] - 4-7 days (MESSAGE SENT TO CLINIC 01/22@[id number] [facility] on follow-up) Discharge Diet: Regular Discharge Activity: Increase activity as tolerated Patient Instructions: Hyponatremia (ED), Benzodiazepine Use Disorder (ED), Dementia (ED), Non-diabetic Hypoglycemia (ED), Hypoglycemia in a Person with Diabetes (ED), Concussion (ED), Alcohol Intoxication (ED), Subarachnoid Hemorrhage (GEN), Altered Mental Status (ED), Opioid Safety Activity Restrictions/Additional Instructions: Take all medicine as prescribed Home oxygen evaluation prior to discharge Stop smoking No drug use Lisinopril was added for your hypertension CBC should be done on follow-up to look at your white blood cell count and platelet count which were low. Take dexamethasone 6 mg daily for next 10 days. Continue using your inhalers and Trelegy as directed. Discharge Attestations Time Spent in Discharge Care*: greater than 30 min Specific Discharge Activities: educating patient, discussing with pcp/other providers, discussing with high risk case manager/social workers/dc planners, documenting/other paperwork and evaluating patient/reviewing data Quality Metrics Clinical Quality Measures [ No reported AMI, CVA or VTE this stay] Coding Level of Care Code 35630 Total time (in minutes) for Discharge: 50 Diagnoses Acute alteration in mental status R41.82 COVID-19 U07.1 Psychiatric care
== END 2023-01-24 15:28 | disposition home or self-care (01) | DRG 177 ==
LOC: ER 22:01 → MEDSURG 23:46
PROVIDERS: Internal Medicine; Admitting Provider Internal Medicine; Emergency Provider Emergency Medicine; PCP Family Medicine Adult Medicine; Visit Provider Student in an Organized Health Care Education/Training Program
DX: U07.1 COVID-19 (principal); G92.9 Unspecified toxic encephalopathy; F33.9 Major depressive disorder, recurrent, unspecified; I67.4 Hypertensive encephalopathy; F15.10 Other stimulant abuse, uncomplicated; F12.20 Cannabis dependence, uncomplicated; D69.6 Thrombocytopenia, unspecified; J43.9 Emphysema, unspecified; Z79.82 Long term (current) use of aspirin; Z79.51 Long term (current) use of inhaled steroids; F10.11 Alcohol abuse, in remission; F43.12 Post-traumatic stress disorder, chronic; F17.210 Nicotine dependence, cigarettes, uncomplicated; F41.1 Generalized anxiety disorder; M81.0 Age-related osteoporosis without current pathological fracture; N18.9 Chronic kidney disease, unspecified; E55.9 Vitamin D deficiency, unspecified; F22 Delusional disorders; Z86.73 Personal history of transient ischemic attack (TIA), and cerebral infarction without residual deficits
CPT/HCPCS: 36415; 70450; 71045; 71250; 80053; 80061; 80306; 80307; 80503; 81001; 82607; 82746; 83036; 83540; 83550; 83735; 84145; 84443; 84484; 85025; 85378; 85610; 86140; 87070; 87205; 87635; 87806; 93005; 94640; 94760; 96372; 96374; 99285; J0248; J0360; J1100; J1650; J2060; J3490; J7030; J7626

== ENCOUNTER → 2023-08-24 13:03 | Outpatient (BNVA) | payer MEDICARE, MEDICAID, SELFPAY | PROVIDERS: PCP Family Medicine Adult Medicine; Visit Provider Thoracic Surgery (Cardiothoracic Vascular Surgery) | DX: I96 Gangrene, not elsewhere classified (principal); L97.521 Non-pressure chronic ulcer of other part of left foot limited to breakdown of skin | CPT/HCPCS: 97597; 99213 ==

== ENCOUNTER → 2023-08-31 12:58 | Outpatient (BNVA) | payer MEDICARE, MEDICAID, SELFPAY | PROVIDERS: PCP Family Medicine Adult Medicine; Visit Provider Thoracic Surgery (Cardiothoracic Vascular Surgery) | DX: I96 Gangrene, not elsewhere classified (principal); L97.521 Non-pressure chronic ulcer of other part of left foot limited to breakdown of skin | CPT/HCPCS: 97597 ==

== ENCOUNTER → 2023-09-10 10:05 | Outpatient (BNVA) | payer MEDICARE, MEDICAID, SELFPAY | PROVIDERS: PCP Family Medicine Adult Medicine; Visit Provider Thoracic Surgery (Cardiothoracic Vascular Surgery) | DX: I96 Gangrene, not elsewhere classified (principal); L89.892 Pressure ulcer of other site, stage 2 | CPT/HCPCS: 97597; A6210; A6220 ==

== ENCOUNTER → 2023-09-17 10:21 | Outpatient (BNVA) | payer MEDICARE, MEDICAID, SELFPAY | PROVIDERS: PCP Family Medicine Adult Medicine; Visit Provider Thoracic Surgery (Cardiothoracic Vascular Surgery) | DX: I96 Gangrene, not elsewhere classified (principal); L89.892 Pressure ulcer of other site, stage 2 | CPT/HCPCS: 97597; 99212; A6021 ==

== ENCOUNTER → 2023-09-22 14:20 | Outpatient (BNVA) | payer MEDICARE, MEDICAID, SELFPAY | PROVIDERS: PCP Family Medicine Adult Medicine; Visit Provider Thoracic Surgery (Cardiothoracic Vascular Surgery) | DX: I96 Gangrene, not elsewhere classified (principal); L89.892 Pressure ulcer of other site, stage 2 | CPT/HCPCS: 99212; A6219 ==

== ENCOUNTER → 2024-09-14 14:21 | Outpatient (BNVA) | payer OTHER, MEDICAID, SELFPAY | PROVIDERS: PCP Family Medicine; Visit Provider Family Medicine | DX: R63.4 Abnormal weight loss (principal); E55.9 Vitamin D deficiency, unspecified; R73.03 Prediabetes | CPT/HCPCS: 85025 ==

== ENCOUNTER 2024-09-29 08:44 | Outpatient (CLI) | payer OTHER, MEDICAID, SELFPAY ==
--- NOTE | 2024-09-29 09:00 | CT_ITS ---
WS: [id number] LDCT LUNG CANCER SCREENING TECHNIQUE: Noncontrast CT of the chest with coronal and sagittal reformatted images. CLINICAL INFORMATION: smoker; 53pk yr; screening DLP: 44.72 mGy.cm DIvol: Mean CTDIvol: 0.70 (mGy) All CT scans at [facility] use at least one of these dose optimization techniques: automated exposure control; mA and/or kV adjustment per patient size (includes targeted exams where dose is matched to clinical indication); or iterative reconstruction. FINDINGS: Comparison 2022 Moderate chronic emphysematous changes. Atelectasis LEFT lower lobe with slight interstitial thickening. Pleural parenchymal fibrosis LEFT lower lobe. LEFT lower lobe nodule measuring 4 mm stable compared to previous. Subpleural nodule RIGHT upper lobe measuring 6 mm. Tiny nodule superior segment RIGHT lower lobe. Calcified [place] LEFT upper lobe. Aortic calcification. Normal caliber thoracic aorta. Coronary calcification. No mediastinal or hilar lymphadenopathy. No axillary lymphadenopathy. Splenic granulomas. Mild thoracic kyphosis. Mild thoracic curve. CT/CT lung screening [id number] IMPRESSION: LUNG-RADS: 2-Benign Appearance or Behavior FOLLOW UP: 12 Month: Continue annual screening with LDCT
== END 2024-09-29 08:45 | disposition home or self-care (01) ==
PROVIDERS: PCP Family Medicine; Visit Provider Family Medicine
DX: Z12.2 Encounter for screening for malignant neoplasm of respiratory organs (principal); F17.210 Nicotine dependence, cigarettes, uncomplicated; J43.8 Other emphysema; J98.11 Atelectasis; J84.10 Pulmonary fibrosis, unspecified; R91.8 Other nonspecific abnormal finding of lung field; I70.0 Atherosclerosis of aorta; I25.10 Atherosclerotic heart disease of native coronary artery without angina pectoris; D73.89 Other diseases of spleen; M40.294 Other kyphosis, thoracic region; M43.8X4 Other specified deforming dorsopathies, thoracic region
CPT/HCPCS: 71271

== ENCOUNTER → 2024-10-03 10:04 | Outpatient (BNVA) | payer OTHER, MEDICAID, SELFPAY | PROVIDERS: PCP Family Medicine; Visit Provider Family Medicine | DX: L57.0 Actinic keratosis (principal) | CPT/HCPCS: 85025; 88304; 88305 ==

== ENCOUNTER 2024-10-05 14:34 | Outpatient (CLI) | payer OTHER, MEDICAID, SELFPAY ==
[2024-10-05 15:40] LABS: Basophils % 0.4 %; Eosinophils # 0.1 10^3/uL (0.0-0.8); Eosinophils % 1.7 %; Hematocrit 41.3 % (36-47); Lymphocytes # 1.3 10^3/uL (0.8-4.8); Lymphocytes % 18.5 %; Mean Corpuscular HGB Conc 33.7 g/dL (30-55); Mean Corpuscular Hemoglobin 31.2 pg (27-33); Mean Corpuscular Volume 92.6 fl (85-98); Mean Platelet Volume 9.1 fL (7.4-10.4); Monocytes # 0.3 10^3/uL (0.2-0.9); Monocytes % 4.8 %; Neutrophils # 5.11 10^3/uL (1.8-7.7); Neutrophils % 74.3 %; Nucleated Red Blood Cells % 0 %; Platelet Count 273 10^3/cmm (157-399); Red Blood Count 4.46 10^6/uL (3.85-5.65); Red Cell Distribution Width 12.8 % (12.1-15.1); White Blood Count 6.88 10^3/uL (3.29-11.43)
[2024-10-05 16:17] LABS: Estmated Average Glucose 120; Hemoglobin A1C 5.8 % (4.0-6.0)
[2024-10-05 16:52] LABS: 25 Hydroxy Vitamin D 57 ng/mL (30-100); Alanine Aminotransferase 9 U/L (0-33); Alkaline Phosphatase 93 U/L (35-105); Anion Gap 14.1 (5-19); Aspartate Amino Transferase 17 U/L (0-32); Blood Urea Nitrogen 10 mg/dL (8-23); Calcium 9.4 mg/dL (8.5-10.5); Carbon Dioxide 31 mmol/L (22-29); Chloride 105 mmol/L (98-107); Chol HDL Ratio 2.45 mg/dL (0.0-4.40); Cholesterol 137 mg/dL (0-200); Globulin 2.7 g/dL (1.3-4.6); Glomerular Filtration Rate 123.8 mL/min (90-130); Glucose 98 mg/dL (65-115); HDL Cholesterol 56 mg/dL (60-100); LDL Cholesterol Calculated 59 mg/dL (50-129); LDL HDL Ratio 1.05 RATIO (0.00-3.22); Osmolality Calculated 303 mOsm/kg (285-295); Potassium 3.1 mmol/L (3.5-5.1); Sodium 147 mmol/L (136-145); Thyroid Stimulating Hormone 1.42 uIU/mL (0.27-4.20); Total Bilirubin 0.5 mg/dL (0.15-1.2); Total Protein 6.7 g/dL (6.6-8.7); Triglycerides 109 mg/dL (0-150)
== END 2024-10-05 14:35 | disposition home or self-care (01) ==
LOC: LAB 14:36
PROVIDERS: PCP Family Medicine; Visit Provider Family Medicine
DX: M81.0 Age-related osteoporosis without current pathological fracture (principal); I10 Essential (primary) hypertension; R73.03 Prediabetes; E55.9 Vitamin D deficiency, unspecified
CPT/HCPCS: 36415; 80053; 80061; 82306; 83036; 84443; 85025

== ENCOUNTER → 2024-11-03 11:44 | Outpatient (BNVA) | payer OTHER, MEDICAID, SELFPAY | PROVIDERS: PCP Family Medicine; Visit Provider Family Medicine | DX: Z12.39 Encounter for other screening for malignant neoplasm of breast (principal); Z11.59 Encounter for screening for other viral diseases | CPT/HCPCS: 80048; 86803 ==

== ENCOUNTER → 2025-02-05 14:52 | Outpatient (BNVA) | payer OTHER, MEDICAID, SELFPAY | PROVIDERS: PCP Family Medicine; Visit Provider Family Medicine | DX: E87.6 Hypokalemia (principal); I10 Essential (primary) hypertension | CPT/HCPCS: 80048 ==

== ENCOUNTER → 2025-02-13 13:00 | Outpatient (BNVA) | payer OTHER, MEDICAID, SELFPAY | PROVIDERS: PCP Family Medicine; Visit Provider Thoracic Surgery (Cardiothoracic Vascular Surgery) | DX: L89.151 Pressure ulcer of sacral region, stage 1 (principal) | CPT/HCPCS: 99213 ==

== ENCOUNTER → 2025-03-08 15:06 | Outpatient (BNVA) | payer OTHER, MEDICAID, SELFPAY | PROVIDERS: PCP Family Medicine; Visit Provider Family Medicine | DX: I10 Essential (primary) hypertension (principal); E87.6 Hypokalemia | CPT/HCPCS: 80053; 85025 ==